=== PATIENT | male | born 1960 | race Caucasian/White ===

== ENCOUNTER 2025-02-03 10:12 | Inpatient (IN) | payer MEDICAID ==
[~2025-02-03] VITALS: Ht 175.3 cm; Wt 75.7 kg
[2025-02-03] VITALS (12 sets, daily range): BP systolic 123–152; BP diastolic 76–96; PULSE 69–91; RESP 12–18; TEMP 97.3–97.8; O2SAT 95–96
[2025-02-03 10:28] LABS: MEAN PLATELET VOLUME 7.1 FL (7.4-10.4); RED CELL DISTRIBUTION WIDTH 14.7 % (11.5-14.5)
[2025-02-03 10:53] LABS: CREATININE 1.01 MG/DL (0.60-1.10); TOTAL CARBON DIOXIDE 20.2 MMOL/L (24-32); eCRCL 75 ML/MIN; eGFR 75 ML/MIN
--- NOTE | 2025-02-03 10:56 | RADIOLOGY REPORT ---
CHEST RADIOGRAPH Indication: CP Technique: Single frontal view of the chest was obtained Comparison: None FINDINGS: Lines and Tubes: None Lungs: No focal consolidation. Pleura: No effusion. No pneumothorax. Cardiomediastinal contours: Unremarkable Bones: No acute osseous abnormality. IMPRESSION: No acute cardiopulmonary disease.
[2025-02-03 11:01] LABS: PRO BRAIN NATRIURETIC PEPTIDE 2010 PG/ML (0-125)
--- NOTE | 2025-02-03 11:13 | Physician Documentation ---
History of Present Illness ~ Chief Complaint: Hypertension Stated Complaint: HIGH BLOOD PRESSURE Time Seen by MD: 11:13 OK to notify your PCP?: Yes Source: patient, RN/MD, RN notes reviewed, old records Mode of Arrival: POV Exam Limitations: no limitations HPI 64 year old male presents to the emergency department seen in bed 03 for complaints of weakness that has been present for the past few days. While at the dentist he states that he was having high blood pressure that was 168/130. He states that he has been having recent shortness of breath, as well of dizziness. He expresses that he has been feeling like he is going to pass out. En route his daughter stated that the patient looked pale. Patient denies any diaphoresis. He states that he last ate at 0300 this morning. Of note patient states that he sees Dr. Escalante and has an appointment with him on 02/11/2025. He states that he has had negative stress tests with him in the past. Patient denies any other associated symptoms at this time. Patient denies any other alleviating or exacerbating factors. Medication Reconciliation Allergies: Coded Allergies: No Known Allergies (Unverified , 02/03/25) Miscellaneous Medications Home Med List (No Home Medications), (Reported) Past Medical History Past Medical History: Coronary Artery Disease, Hypertension Past Surgical History: gastric bypass Smoking Status: Never smoker Alcohol Use: None Drug Use: none Review of Systems All Other Systems at this time: Reviewed and Negative ROS As stated above in the HPI, otherwise all systems are reviewed and negative. Physical Exam Vital Signs: RN Vital Signs have been reviewed: Yes, Temperature: 98.4, Source: Temporal, Heart Rate: 102, Respiratory Rate: 16, BP: 135/100, Pulse Oximetry: 97, Weight: 79.250 Oxygen Flow Rate: 0 Pulse Oximetry Reflects: adequate oxygenation Physical Exam General: The patient is well developed, well nourished, nontoxic appearing and is in no acute distress. Skin: [place], warm and dry with no rashes. HEENT: Head was normocephalic and atraumatic. Eyes - pupils equal, round, reactive to light and accommodation. Extraocular movements were intact. Conjunctivae were nonicteric. Ears - bilateral tympanic membranes were normal. The mouth and oropharynx were clear with moist mucous membranes. There were no pharyngeal exudates or erythema. Neck: Supple and nontender. There was no jugular venous distention, lymphadenopathy, thyromegaly or masses. Chest: Clear to auscultation bilaterally without wheezes, rales or rhonchi. No accessory muscle use. No dullness to percussion. Heart: Rapid heart rate. S1, S2. No murmurs. Palpation of the chest wall was normal. No rubs or thrills. Abdomen: Soft, nontender and nondistended. Positive bowel sounds. No guarding or rebound. No hepatosplenomegaly or palpable masses. Extremities: No cyanosis, clubbing or edema. The patient moves all extremities. Pulses were equal and symmetric. Neurologic: Cranial nerves II-XII were intact. Sensation was intact to light touch throughout. Motor strength was 5/5 in all four extremities. Deep tendon reflexes were intact in both upper and lower extremities. Psychologic: The patient was oriented to person, place and time. The patient demonstrated appropriate judgement and insight. Progress Progress Note 1130: Dr. Escalante was informed that his patient was in the ER. 1150: The case was discussed with the hospitalist resident who was informed on the patient and kindly agreed to admission. Results/Orders Reviewed/noted all lab results: Yes Results/Orders Orders - ROSSI MG MD Chest,Single View (02/03/25 10:14) Monitor (02/03/25 10:14) Saline Lock (02/03/25 10:14) Oxygen (02/03/25 10:14) Md To Page (02/03/25 11:20) Page Hospitalist (02/03/25 11:20) Electrocardiogram (02/04/25 10:14) Completed Orders - ROSSI MG MD Chest,Single View (02/03/25 10:14) Cbc/Diff (02/03/25 10:14) PBNP (02/03/25 10:14) Hs Troponin I W Calculations (02/03/25 10:14) CMP (02/03/25 10:14) Pt Inr (02/03/25 11:14) PTT (02/03/25 11:14) Aspirin 81mg Chew Tablet (Aspirin 81mg C (02/03/25 11:15) Heparin 10,000 Unit/Ml 1ml (Heparin 10,0 (02/03/25 11:15) Heparin 25,000 Unit/250ml Bag (Heparin 2 (02/03/25 11:15) Metoprolol Tartrate Inj (Lopressor Iv) (02/03/25 11:20) Normal Saline 1000ml (Sodium Chloride 10 (02/03/25 11:20) Drug Screen, Urine (02/03/25 11:29) Message To Nursing (02/03/25 11:55) Electrocardiogram (02/04/25 10:14) Vital Signs 02/03/25 02/03/25 02/03/25 10:20 10:42 11:59 Temp 98.4 Pulse 101 102 93 Resp 18 16 B/P (MAP) 151/115 135/100 (112) Pulse Ox 99 97 O2 Flow Rate 0 Laboratory Tests Test 02/03/25 10:20 White Blood Count 14.3 H Red Blood Count 4.83 Hemoglobin 14.4 Hematocrit 42.8 Mean Corpuscular Volume 88.7 Mean Corpuscular Hemoglobin 29.9 Mean Corpuscular Hemoglobin Concent 33.7 Red Cell Distribution Width 14.7 H Platelet Count 545 H Mean Platelet Volume 7.1 L Neutrophils (%) (Auto) 69.2 Lymphocytes (%) (Auto) 18.8 L Monocytes (%) (Auto) 7.9 Eosinophils (%) (Auto) 3.0 Basophils (%) (Auto) 1.1 H Neutrophils # (Auto) 9.9 H Lymphocytes # (Auto) 2.7 Monocytes # (Auto) 1.1 H Eosinophils # (Auto) 0.4 Basophils # (Auto) 0.2 CBC Comment Prothrombin Time 10.4 INR International Normalized Ratio 1.0 Activated Partial Thromboplast Time 32 Coagulation Comments Sodium Level 140 Potassium Level 3.7 Chloride Level 108 H Carbon Dioxide Level 20.2 L Anion Gap 12 Blood Urea Nitrogen 7 Creatinine 1.01 Estimated GFR/1.73 m2 75 BUN/Creatinine Ratio 6.9 L Glucose Level 114 H Hemoglobin A1c 5.4 Calcium Level 9.0 Total Bilirubin 0.2 Aspartate Amino Transf (AST/SGOT) 32 Alanine Aminotransferase (ALT/SGPT) 93 H Alkaline Phosphatase 74 Troponin I High Sensitivity 3484 *H Pro-B-Type Natriuretic Peptide 2010 H Total Protein 8.4 H Albumin 3.6 Globulin 4.8 H Albumin/Globulin Ratio 0.8 L Chemistry Comments Re-Evaluation Re-Evaluation : Progress Patient was seen and examined. Patient was given reassurance. Patient was seen for hypertension but was also having some vague cardiac symptoms as well. Patient was then worked up for myocardial infarction in was later found to have a positive troponin admitted for non ST-elevation myocardial infarction. Patient's CBC shows a slight leukocytosis of 14 but no anemia with a hemoglobin of 14 hematocrit of 42 without left shift. Platelets slightly elevated at 545. Coagulation within normal limits urinalysis within normal limits tox screen negative. Chemistry showed slight metabolic acidosis with CO2 of 20 otherwise chemistries within normal limits. Glucose slightly elevated at 114. Liver function tests were within normal limits proBNP elevated at 2000. Unfortunately troponin was elevated at 3484. At that point in time patient was given aspirin and started on a heparin bolus. Patient also received a beta gemma and additional fluids in preparation for cardiac catheterization. Immediate consultation was made with cardiology for emergent catheterization. Patient was still having chest pain but much improved. Initial blood pressure before beta gemma was 151/115. Blood pressure later improved and was 120/99 with a heart rate of 89. Of system continuous cake icer and packer interpretation shows sinus tachycardia heart rate 100, abnormal, my interpretation. Pulse oximetry monitor interpretation shows normal oxygenation at 99% room air, normal, my interpretation. EKG/XRAY/CT/US/VASC/MRI EKG : Additional Comment 1019: EDMD Mg interpreted EKG to reveal sinus rhythm at a rate of 96bom. Patient had poor R wave progression with Q waves in V1-V3. Patient has T wave inversions in V and AVF.. Qtc of 458. Chest X-Ray : Additional Comments CHEST RADIOGRAPH Indication: CP Technique: Single frontal view of the chest was obtained Comparison: None FINDINGS: Lines and Tubes: None Lungs: No focal consolidation. Pleura: No effusion. No pneumothorax. Cardiomediastinal contours: Unremarkable Bones: No acute osseous abnormality. IMPRESSION: No acute cardiopulmonary disease. Electronically Signed by:ANABEL BLOCK MD Date & Time: 02/03/25 5254 Heart Score: Heart Score Response (Comments) Value History Moderate Suspicious [address]-Deviation 2 Age 45-64 1 Risk Factors 1 or 2 risk factors 1 Troponin >3 x's Normal limit 2 Total 7 Medical Decision Making Additional info obtained from: old records Differential Dx:Considerations: Include CHF, Include HTN, essential, Include HTN, accelerated, Include HTN, malignant, Include HTN, encephalopathy, Include medical noncompliance, Include medication withdrawal, Include pulmonary edema, Include other Departure Time of Disposition: 12:08 Disposition: ADMITTED INPATIENT Admitted to Inpatient Unit: yes, to hospitalist, 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 I provided critical care services, which included medication orders, frequent reevaluations of the patient's condition and response to treatment, ordering and reviewing test results, and discussing the case with various consultants. Ex cludes time spent performing separately billable procedures. The critical care time associated with the care of the patient was 30 minutes. Signature Scribe Signature: Scribed for Rossi Mg MD by Jaswant Castellanos . 02/03/25 11:32 Attestation: The note accurately reflects work and decisions made by me.Rossi Mg MD 02/03/25 11:13 ROSSI MG MD Feb 03, 2025 11:13 JASWANT LUNDY Feb 03, 2025 11:33
[2025-02-03 11:40] LABS: APTT 32 SECONDS (22-32); INR 1.0 INR
[2025-02-03] MEDS: metoprolol tartrate 1mg/ml inj IV SCH (11:50)
[2025-02-03] MEDS ORDERED: potassium Cl 20 mEq SR tablet PO PRN (11:55)
[2025-02-03] MEDS: MESSAGE TO NURSING IV ONE ×3 (11:55→20:50)
[2025-02-03] MEDS ORDERED: ondansetron/PF 4mg/2ml inj IV PRN ×2 (11:55→16:10)
[2025-02-03] MEDS: PERFLUTREN PROTEIN-A MICROSPHR (Optison) 0.22 MG/ML 3ML VIAL IV ONE (11:55)
[2025-02-03] MEDS ORDERED: magnesium sulf-water 2g/50mL 50 ML IV PRN (11:55)
[2025-02-03] MEDS ORDERED: mag hydrox/Alum hydrox/simeth 30ml oral suspension PO PRN (11:55)
[2025-02-03] MEDS ORDERED: potassium Cl 40MEQ/1/2NS 520ml 520 ML IV PRN (11:55)
[2025-02-03] MEDS ORDERED: magnesium sulf-water 4G/100mL 100 ML IV PRN (11:55)
[2025-02-03] MEDS ORDERED: magnesium Cl slow-release 64mg tablet PO PRN (11:55)
[2025-02-03] MEDS ORDERED: magnesium hydroxide 30ml (MOM) UD suspension PO PRN (11:55)
[2025-02-03] MEDS: heparin 10,000 units/1 ML INJ IV ONE (12:04)
[2025-02-03] MEDS: normal saline 1000ML IV soln IVB ONE (12:07)
[2025-02-03] MEDS: heparin 25,000 UNIT/250ml bag 250 ML IV PRN ×2 (12:07→21:47)
[2025-02-03] MEDS ORDERED: heparin 10,000 units/1 ML INJ IV PRN ×2 (12:15→17:50)
[2025-02-03] MEDS ORDERED: nitroGLYCERIN-Tridil 50MG/D5W 250 ML IV PRN (12:40)
--- NOTE | 2025-02-03 13:08 | HISTORY AND PHYSICAL-Residence ---
History & Physical Providers to CC Resident Creating Document: JOVANA BRIGGS, INESSA ~ History of Present Illness Reason for Admit\Complaint: Dizziness,weakness and shortness of breath History of Present Illness The patient is a 64-year-old male smoker, presented to the ED with the symptoms of dizziness, weakness and shortness of breaths for the last 3 days. For the last 3 days patient has been having shortness of breath even after walking small distance and he gets better once he gets some rest. Patient had a dental appointment for a procedure 2 days back, which was eventually canceled due to his high blood pressure. Blood pressure at that point was recorded as 210 over 110. Patient denies any chest pain,dyspepsia,sweating,nausea or vomiting. Patient admits to taking ibuprofen thrice a day for many years. Patient has no complaints of bleeding or any fecal occult blood. ED course: On my examination, his vital signs were significant for hypertension (155/70 mmHg), with a rapid heart rate of 93. He was alert and oriented upon examination. Patient has elevated troponin-3484 and elevated NT proBNP. Follows up with and patient says the last couple of stress tests have been negative. Does not have a primary care provider,is currently looking for one. Resides with his family in his house. Ambulates independently Allergies: Coded Allergies: No Known Allergies (Unverified , 02/03/25) Home Medications IBUPROFEN Past Medical History Past Medical History None Past Surgical History Surgical History Comment Stomach ulcer and an intusussception which was repaired in the 1979. Family History Family History: FHx: bladder cancer FHx: heart disease FHx: stroke Past Social History Social History Comment Patient smokes about less than 1 pack of cigarettes a day. He has been smoking for the last 30 years. History of drinking alcohol 30 years back. Smoking: Cigarettes, Less than 1 pack/day Alcohol Use: None Drug Use: None Lives with: Family Lives In: Home ROS All Other Systems: Reviewed and Negative (All systems negative except pertinent positive) Constitutional: Reports: weakness Eyes: Reports: no symptoms reported ENT: Reports: no symptoms reported Respiratory: Reports: no symptoms reported Cardiovascular: Reports: lightheadedness Gastrointestinal: Reports: no symptoms reported Male Genitalia: Reports: no symptoms reported Musculoskeletal: Reports: no symptoms reported Integumentary: Reports: no symptoms reported Allergic/Immunologic: Reports: no symptoms reported Hematologic/Lymphatic: Reports: no symptoms reported Psychiatric: Reports: no symptoms reported Exam Vitals: Vital Signs Date Time Temp Pulse Resp B/P (MAP) Pulse Ox O2 Delivery O2 Flow Rate FiO2 02/03/25 12:50 17 02/03/25 12:42 93 02/03/25 10:42 97 02/03/25 10:20 98.4 0 General: Awake , alert, and oriented x4, in apparent distress HEENT: Atraumatic, normocephalic, EOMI, anicteric sclera ; pink conjunctiva,few teeth missing Neck: Trachea midline. Supple, full range of motion, no JVD Cardiac: Regular rhythm, rapid rate with no murmurs all over the precordium. Respiratory: Equal breath sounds bilaterally, no tachypnea, Gastrointestinal: Abdomen symmetric, non-distended, soft, non-tender, normal bowel sounds x4 quadrant, normoactive, no hepatosplenomegaly Musculoskeletal: 2+ bilateral pitting edema, no cyanosis, peripheral pulses were difficult to be felt due to edema Neurological: Speech is clear, alert, and oriented x 4. No motor or sensory deficit, patient has denied examination of her flexes. Cranial nerves II-XII intact. Skin: Warm and dry Diagnostic Data Last Recorded Lab Results: 02/03/25 1020 02/03/25 1020 Diagnostic Data: Laboratory Tests Test 02/03/25 10:20 Prothrombin Time 10.4 SECONDS (9.0-12.0) INR International Normalized Ratio 1.0 INR Activated Partial Thromboplast Time 32 SECONDS (22-32) Coagulation Comments Counseling Services Smoking & Tobacco Cessation: > 10 Minutes (Patient is informed of the serious effects of smoking including but not limited to lung cancer, delayed healing, increased staph infections, bladder cancer, COPD, increased risk of heart strokes, patient understood the risk.) Advance Care Planning Advanced Care plannin - 30 Minutes (Code status is discussed with the patient and he agreed for full code with his daughter as alternate POA) Additional Plan NSTEMI Patient was started heparin drip, patient initially had ST-elevation of 1 mm which was subsequently resolved. His troponin levels were elevated,3484 and proBNP was elevated. 122 points on the CLAYTON score lab technologist reports showed: Left ventriculogram severe mid inferior hypokinesis mid-moderate anterior hypokinesis ejection fraction 40%. Calcific serial proximal 60 mid 80-85% left anterior descending Diagonal ostial 90% proximal 80%. Left circumflex with large posterolateral to apex with 75% at the left circumflex posterolateral 90 degree angle. Patient received cardiovascular surgical consultation plan for multivessel coronary bypass grafting. Patient is on amlodipine 2.5mg, metoprolol 25mg,lisinopril 40mg, aspirin 81mg and lipitor 40mg as per recommendations. on heparin drip HYPERTENSIVE EMERGENCY Patient has initially had high blood pressures in the 210/110mmhg, which was treated with metoprolol and hydralazine. His blood pressure is better now, is currently on amlodipine and metoprolol. 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 Vanna Kang tomorrow Tobacco use Long-standing history of cigarette smoking used to smoke 1pack per day for 30 years. He currently smokes 10 cigarettes/day for the last year. Plan for Nicotine replacement therapy (patch or gum) and counselled for smoking cessation. I spent 8 minutes discussing smoking cessation with the patient including the risk of continuing smoke: Lung cancer, stroke, heart attack, poor wound healing,. The patient has accepted a 14 mg nicotine patch. I spent a total of 17 minutes on reviewing various resuscitative measures/ ACP with the patient at the time of admission. The patient has decided on a full code status Code Status: Full code DVT Prophylaxis: Eliquis Lines/Tubes: PIV Nutrition: Heart healthy diet Prognosis: Guarded Disposition:Patient has patient has been posted for subclavian steal stent tomorrow and future plan for multiple vessel coronary bypass surgery. Jovana Briggs MD Internal Medicine Resident PGY-1 Date of Service: Feb 03, 2025 Billing Provider: RYANNE MATHUR DO Common Visit Codes: 28869-CBZYRJU INP/OBS CARE (HIGH) Secondary Visit Codes: 16062-GBZYI CHNG SMOKING 3-10M, [id number] CARE PLAN 30 MINUTES JOVANA BRIGGS, RES Feb 03, 2025 13:08 ALYSSA MULLEN, RES Feb 03, 2025 18:12 RYANNE MATHUR DO Feb 03, 2025 19:32
[2025-02-03] MEDS ORDERED: LIDOcaine 1% 30ml preserv. free vial ONE (13:44)
[2025-02-03] MEDS ORDERED: fentaNYL/PF 50MCG/1 ML 2ML syringe ONE ×2 (13:44→15:29)
[2025-02-03] MEDS ORDERED: heparin 1,000unit/ml 10ml vial 0 ML ONE (13:44)
[2025-02-03] MEDS ORDERED: midazolam 1 mg/ML 2ml injection ONE ×2 (13:44→15:29)
[2025-02-03] MEDS ORDERED: iohexol 350 MG/ML 50ML vial IV ONE (13:44)
[2025-02-03 13:59] LABS: URINE AMPHETAMINE SCREEN NEGATIVE (Neg); URINE BARBITUATE SCREEN NEGATIVE (Neg); URINE BENZODIAZEPINES SCREEN NEGATIVE (Neg); URINE CANNABINOID SCREEN NEGATIVE (Neg); URINE COCAINE SCREEN NEGATIVE (Neg); URINE METHADONE SCREEN NEGATIVE (Neg); URINE OPIATE SCREEN NEGATIVE (Neg); URINE PHENCYCLIDINE SCREEN NEGATIVE (Neg)
[2025-02-03 14:01] LABS: LEUKOCYTE ESTERASE ,URINE NEGATIVE (Neg); NITRITES, URINE NEGATIVE (Neg); OCCULT BLOOD,URINE SMALL (Neg)
--- NOTE | 2025-02-03 14:01 | CONSULTATION REPORT ---
Cardiac Consultation Report Providers to CC ~ Subjective Subjective Cardiology consultation: 64-year-old male came to the emergency room for malaise fatigue vague discomfort chest had was found to have [address] segment elevation two three and AVF and blood pressure of 230/130. I personally saw him two years ago and he has nonadherent medically does not take any medication and had homeopathic beliefs. He has received metoprolol 2.5 was started on intravenous heparin blood pressure is still 210/110 heart rate 100. Denies angina this time. Repeat 12 lead EKGs shows improvement of the [address]-elevation two three and AVF with nonspecific ST-T changes now. His daughter is here with him. He is status post remote gastric bypass type unknown 1998 by his history. He has repeat gastroesophageal dilatation. Two years ago he was going to have multiple teeth pulled but it was never performed. He enjoys cigarettes denies alcohol use denies recreational drug use. Troponin is greater than eight. Objective Vitals Vital Signs Date Time Temp Pulse Resp B/P (MAP) Pulse Ox O2 Delivery O2 Flow Rate FiO2 02/03/25 13:07 89 13 128/99 (109) 98 02/03/25 10:20 98.4 0 Lab Results: 02/03/25 1020 02/03/25 1020 Objective Carotid no bruit chest clear to auscultation percussion heart no murmur no S3 gallop no rub abdomen active bowel sounds no bruits pulses plus two upper and lower extremities faint femoral bruits. Ocular motion intact no nystagmus no tremor. Multiple teeth missing. Poor dentition. Coagulation Studies Laboratory Tests Test 02/03/25 10:20 Prothrombin Time 10.4 SECONDS (9.0-12.0) INR International Normalized Ratio 1.0 INR Activated Partial Thromboplast Time 32 SECONDS (22-32) Coagulation Comments Problem\Assessment\Plan Additional Plan Impression: Uncontrolled hypertension was minimal ST elevation of inferior leads now resolved. Elevated troponin. Consistent with non ST elevated MN. Recommendation: 1. Improved blood pressure control add intravenous nitroglycerin a 2nd dose of metoprolol intravenously. 2. Risks benefits alternatives diagnostic coronary angiography potential intervention discussed with patient. He would like to proceed. He promises to take his medications as prescribed. Otherwise your stent will thrombose and you will have at MN that you may not survive. RADHA MELENDEZ MD Feb 03, 2025 14:01
[2025-02-03 14:04] LABS: UA COLLECTION TYPE URINAL
[2025-02-03 14:08] LABS: AMORPHOUS URATES 1+
[2025-02-03 14:10] LABS: SQUAMOUS EPITHELIAL CELL,UR NONE SEEN /LPF (FEW)
[2025-02-03] MEDS ORDERED: nitroGLYCERIN-Tridil 50MG/D5W 250 ML IV ONE (14:45)
[2025-02-03] MEDS ORDERED: metoprolol tartrate 1mg/ml inj IV ONE (14:55)
[2025-02-03] MEDS ORDERED: enalaprilat 1.25mg/ml 2ml vial IV ONE ×3 (15:03→15:26)
[2025-02-03] MEDS ORDERED: nitroGLYCERIN-Tridil 50MG/D5W 250 ML IV SCH ×2 (15:35→15:44)
--- NOTE | 2025-02-03 15:47 | CARDIAC CATH REPORT ---
Cardiology Post Cath Findings Findings Findings: Cardiology post catheterization note: Uncomplicated left heart catheterization left ventriculography coronary arteriography subclavian angiography. Right iliofemoral arteriogram Angio-Seal application. Indication: Uncontrolled hypertension non ST elevated myocardial infarction. Patient on intravenous heparin trial to be started had received a bit beta- blockers First EKGs showed [address] segment elevation two three AVF that subsequently resolved. Troponin eight. 1. Left ventriculogram severe mid inferior hypokinesis mid moderate anterior hypokinesis ejection fraction 40%. No MR. 2. Calcific serial proximal 60 mid 80 85% left anterior descending 3. Diagonal ostial 90% proximal 80%. 4. Left circumflex with large posterolateral to apex with 75% at the left circumflex posterolateral 90 degree angle. 5. PDA 40% distal right coronary with 50%. 6. Left subclavian with 90 % stenosis 60 mm gradient difference between aortic pressure and left cuff pressure Comment: Patient received cardiovascular surgical consultation plan for multivessel coronary bypass grafting. 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 Start and continue beta-gemma amlodipine calcium channel gemma lisinopril SHEREE inhibitor aspirin 81 mg daily Lipitor 40 mg daily. Comment: Patient will receive stent to the left subclavian by Dr. Joe Kang tomorrow RADHA MELENDEZ MD Feb 03, 2025 15:47
[2025-02-03] MEDS ORDERED: HYDROcodone/acetaminophen 10/325mg tab PO PRN (16:10)
[2025-02-03] MEDS ORDERED: OXAZEpam 15mg capsule PO PRN (16:10)
[2025-02-03] MEDS ORDERED: HYDROcodone/acetaminophen 5mg/325mg tablet PO PRN (16:10)
[2025-02-03] MEDS: normal saline 1000ml 1,000 ML IV SCH (16:15)
[2025-02-03] MEDS: nitroGLYCERIN-Tridil 50MG/D5W 250 ML IV SCH (16:15)
[2025-02-03] MEDS ORDERED: heparin 10,000 units/1 ML INJ IV ONE ×2 (17:50→20:15)
[2025-02-03] MEDS ORDERED: heparin 25,000 UNIT/250ml bag 250 ML IV PRN (17:50)
--- NOTE | 2025-02-03 18:56 | CONSULTATION REPORT ---
Consult Providers to CC CC: RADHA MELENDEZ MD; [facility] Consult Consultation Chief complaint: I was asked to assess the feasibility of surgical coronary revascularization in this patient with congestive heart failure symptoms and a non ST segment elevation infarction associated with uncontrolled hypertension. 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 One year ago he developed mild exertional fatigue without any angina whatsoever and presented to his primary care provider, who referred him to Dr. Melendez, who performed stress testing that returned perfectly normal. The patient has continued to experience the same symptoms with some progression in the past few months. When he presented for dental extraction on February 01, he was found to be markedly hypertensive. The procedure was canceled, and he was told to report to his primary care provider. Due to some scheduling delay and overall not feeling well but without any chest pain, pressure, nausea, diaphoresis, pronounced dyspnea, or overt palpitations beyond some extrasystoles, he decided to present to the emergency department. He denies any leg swelling or any orthopnea. His BNP was in the 2000 range and his troponins were elevated to the 3400 range along with some ischemic changes inferiorly that apparently have since resolved. Echocardiography showed an ejection fraction of 50% with severe inferior hypokinesis and mild mitral regurgitation with estimated pulmonary artery systo lic pressure of 37 mm Hg. He was brought to the cardiac catheterization lab yesterday from the emergency department by Dr. Silverio who performed coronary angiography and left ventriculography. A 6 Emirati catheter was utilized. The left ventricular end-diastolic pressure was 22 mm Hg and the aortic pressure was 200 mm Hg. Left ventriculography showed severe inferior hypokinesis with an overall ejection fraction of approximately 30-35 % visually. The dominant right coronary artery was patent and had only a mild stenosis in the distal atrioventricular groove segment; the prominent posterior descending artery and the rest of the vessel had minimal disease. The circumflex system contained a single obtuse marginal branch that had a distal stenosis in a posterolateral branch where the vessel diameter approximates 1 mm, with little runoff beyond. The left anterior descending system does not wrap extensively beyond the apex, however, had a 60 % stenosis at the junction of its proximal and middle thirds and a separate 80% stenosis in a diagonal branch that served a substantial territory. An incidental finding was a high-grade proximal subclavian artery stenosis that impeded angiography of the left internal mammary artery, and there was a 60 mm Hg lower blood pressure in the left arm than the right. The patient denies classic left arm claudication or dizziness associated with left arm exertion suggestive of a subclavian steal. 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 The patient has been on no antihypertensive medication, but is currently between primary care providers. He feels fine on IV nitroglycerin. A chest x-ray shows no pulmonary edema and no overt cardiomegaly. Allergies: None Past Medical History Past Medical History None Past Surgical History Surgical History Comment Stomach ulcer and an intusussception which was repaired in the 1979. Family History Family History: FHx: bladder cancer FHx: heart disease FHx: stroke Past Social History Social History Comment Patient smokes about less than 1 pack of cigarettes a day. He has been smoking for the last 30 years. History of drinking alcohol 30 years back. Smoking: Cigarettes, Less than 1 pack/day Alcohol Use: None Drug Use: None Lives with: Family Lives In: Home Review of systems: Constitutional: Negative for fevers, chills, weight loss, night sweats. Endocrine: Negative for diabetes, elevated blood sugars, or known thyroid disorder. HEENT: Notable for impaired dentition pending extensive extractions, negative for severe headache, changes in visual or auditory acuity, epistaxis, or dysphagia. Cardiopulmonary: See history of present illness. Negative for cough, hemoptysis, or sputum production. The patient wheezes very rarely and uses no inhaled bronchodilator. Gastrointestinal: Negative for significant gastroesophageal reflux, abdominal pain, nausea, blood per rectum, or hepatitis. Genitourinary: Notable for mild slowing of urinary stream, nocturia times 0-1. Negative for dysuria or hematuria. Musculoskeletal: Negative for chronic back discomfort (the patient was using ibuprofen because of tooth discomfort only), leg or arm claudication, or joint swelling/discomfort. Neurologic: Negative for transient ischemic attacks, amaurosis, or seizure. No reproducible dizziness, lightheadedness, or near syncope. Psychiatric: Negative for mental health medication use or related hospitalization. Physical examination: Vital signs reviewed. Blood pressures are be taken only in the right upper extremity. General appearance: Patient is lying flat in bed on room air without any distress, normal respirations. HEENT: Normocephalic, reactive pupils, no thyromegaly, no carotid bruits. Notable for significantly impaired dentition. Normal jugular venous distention. Lymphadenopathy: Negative for cervical or supraclavicular lymphadenopathy. Chest: Normal contour, without barrel chest configuration. Good air flow bilaterally without wheezing or prolonged expiratory phase. Heart: S1, S2, regular rhythm without extrasystoles. No murmur, rub, gallop. Abdomen: Nonobese. Healed epigastric midline scar without hernia. Nondistended, nontender, no hepatosplenomegaly, mass, or palpable aneurysm. Extremities: Right groin catheterization site without hematoma. Notable for markedly impaired right radial pulse. Symmetric, full pedal pulses. No clubbing, cyanosis, or edema. Neurologic: Grossly normal. Gait and stance not checked due to bed rest status following cardiac catheterization. Psychiatric: Normal affect. Assessment and plan: 1. Coronary artery bypass grafting can be considered, particularly with regard to revascularization of the left anterior descending and diagonal coronary arteries. While the orientation of these two arteries is somewhat divergent, consideration could be given to utilization of a sequential left internal mammary artery, given the patient's habitus. Even though the wall motion abnormality both of left ventriculography and echocardiography is in the inferior wall, there does not appeared to be any hemodynamically significant lesion in the dominant right coronary artery. Additionally, the feasibility of a useful bypass graft in the posterolateral obtuse marginal region is questiona ble because of the size and runoff of that vessel beyond the very distal stenosis. 2. After discussion with the patient with regard to advantages of an internal mammary artery graft and treatment options, the patient prefers to consider PCI as his 1st option. This is not unreasonable unless stenting of the left anterior descending and diagonal artery is associated with higher procedural risk. I related this to Dr. Melendez. 3. As Dr. Melendez has noted, initiation of guideline-directed antihypertensive/heart failure medication is the most critical aspect of this patient's treatment, and I reinforced not only compliance to a medical regimen but also the total cessation of cigarette smoking. The patient professed motivation in those directions based on this episode. 4. While I regarded stenting of the proximal left subclavian stenosis to be essential preoperatively for coronary artery bypass grafting with a left internal mammary artery graft, there may not be an independent indication for proceeding presently with subclavian stenting based on minimal if any symptoms related to the left subclavian stenosis. 5. I will continue to follow the patient daily, as he is currently on intravenous nitroglycerin, in the event that there are any changes in his status. I very much appreciate this consultation opportunity. Visit Coding Cardiology Date of Service: Feb 03, 2025 Billing Provider: DARCY HSU Jr., MD Cardiology Evaluation and Dora: CONSULT ONLY Cardiology Consultation Codes: [id number] CONSULT <60MIN DARCY HSU Jr., MD Feb 03, 2025 18:56
[2025-02-03] MEDS: K and/or MAG REPLACEMENT MC SCH (20:00)
[2025-02-03] MEDS: HEPARIN DRIP-CARDIAC**PHARMACIST-TO-DOSE IV ONE (20:00)
[2025-02-03] MEDS: docusate sod 100mg capsule PO SCH (21:42)
[2025-02-04] VITALS (9 sets, daily range): BP systolic 104–143; BP diastolic 54–83; PULSE 67–85; RESP 11–19; TEMP 97.5–99; O2SAT 93–97
[2025-02-04 02:52] LABS: MEAN PLATELET VOLUME 7.1 FL (7.4-10.4); RED CELL DISTRIBUTION WIDTH 14.2 % (11.5-14.5)
[2025-02-04 03:07] LABS: CHOL/HDL RATIO 8.8 (0.00-4.99); CREATININE 0.93 MG/DL (0.60-1.10); LDL CHOLESTEROL 146 MG/DL (50-100); TOTAL CARBON DIOXIDE 24.3 MMOL/L (24-32); eCRCL 81 ML/MIN; eGFR 82 ML/MIN
[2025-02-04] MEDS: MESSAGE TO NURSING IV ONE ×2 (03:15→10:58)
[2025-02-04] MEDS: heparin 10,000 units/1 ML INJ IV PRN (03:21)
--- NOTE | 2025-02-04 04:47 | CARDIOLOGY REPORT ---
DATE OF SERVICE: 02/03/2025 DICTATING PHYSICIAN: Rupert Escalante MD PROCEDURES: * Left heart catheterization. * Left ventriculography. * Selected left and right coronary arteriography. * Selected right subclavian angiography. * Selected left subclavian angiography. * Right iliofemoral arteriogram, Angio-Seal application. * Conscious sedation administration 60 minutes. BRIEF HISTORY AND INDICATION: Medically nonadherent 64-year-old male started to feel badly, came to the emergency room with malaise, vague chest discomfort and was found to have uncontrolled hypertension and what was felt to be a non-ST elevated [place]; however, on reviewing the EKGs, there was 1-mm ST segment elevation in inferior leads, after receiving metoprolol heparin, the ST segment resolved. He has hyperlipidemia, untreated hypertension, remote gastric bypass. Past episode of esophageal dilatation. He has poor dentition and never did have his teeth removed. Two years ago, he had a normal stress test. His sister had a stent. Father had coronary bypass grafting. His daughter convinced him to come in. He does not like to go see physicians. Presently, he is on intravenous heparin. Intravenous Tridil has not been started, being transported to the vat house laborer. Troponin is 8. Risks of procedure included but not restricted to , stroke, myocardial infarction, renal failure, neurologic or vascular complications, bleeding complications, allergic reaction, emergency intervention, and emergency coronary bypass grafting and its attendant complications. The patient said he desires to proceed. TECHNIQUE: Upon arriving in the vat house laborer, he was noted to have elevated blood pressure. To prepare him for heart catheterization and to keep him sedated during the procedure, he received a total of 8 mL of 1% lidocaine, 3 mg of Versed, 150 mcg of phentermine, Vasotec 7.5 mg IV, metoprolol 5 mg IV and was placed on intravenous nitroglycerin 30 mcg per minute. He is on heparin 1000 units per hour. Following single wall puncture technique, J-tip guidewire leaked, a 6-Vietnamese sheath was then introduced to the right femoral artery. Selective left and right coronary arteriography were performed in multiple projectional obliquities. Selective right subclavian and left subclavian angiography. Runoff into the internal mammary arteries were performed with a 6-Vietnamese femoral and left 4, right 4 Trent-shaped catheters. Left ventriculography and right anterior oblique projection were performed with a straight pigtail catheter. Catheter exchanges were under fluoroscopic guidance and J-tip guidewire lead. Termination of the right iliac femoral arteriogram was performed. Angio-Seal was applied in the vat house laborer after adequate blood pressure control. Hemostasis was obtained. There were no complications. The patient received initial cardiovascular surgical evaluation in the vat house laborer. Findings were discussed with the patient and daughter postprocedure. A 100 mL of Omnipaque 350 contrast was administered. Fluoroscopy time was 4.1 minutes, radiation exposure of 5890 cGy per cm2. FINDINGS: A 64-year-old male, 5 feet 9 inches, 175 pounds, AO 177/100, LV 177/7-22. Left ventriculogram mild anterior, mid, inferior severe hypokinesis, ejection fraction 40%, mitral valve flow, no mitral regurgitation. Right subclavian with 20% narrowing. Right internal mammary smooth. Proximal 90% left subclavian, DEREK-3 flow distally. Left internal mammary partially opacified, uninterpretable. Left main coronary is tapered. It provides a left anterior descending and left circumflex. There is an 80% eccentric proximal left anterior descending, 80% mid left anterior descending, a bifurcated first septal at the level of the proximal left anterior descending narrowing. Diagonal has serial proximal 85%, 50% narrowings. Left circumflex provides a first and second obtuse marginal and intermediate of 0.5 mm in diameter. The posterolateral is a long vessel, it has a 110-degree bend. It provides a 1-mm vessel with 60% narrowing at the left circumflex posterolateral junction. Right coronary artery is proximal 25% narrowing. It is a large vessel. There is an eccentric proximal 40% posterior descending artery narrowing and 40% distal right coronary artery narrowing in the proximal segment of the distal right coronary. It provides a first, second, and third posterolateral branch. Both the posterior descending and the posterolateral reached the apex of the myocardium. RESULTS: * Mild anterior, severe mid-inferior hypokinesis. Ejection fraction 40%. Mitral valve prolapse. No mitral regurgitation. * A 20% right subclavian narrowing. Right internal mammary smooth. * A 90% proximal left subclavian narrowing, DEREK-3 flow distally in the left subclavian. DEREK-3 flow after the proximal opacification of the left internal mammary artery. * Left main coronary tapered. * An 80% proximal left anterior descending, 80% mid left anterior descending. * Serial 85%, 50% diagonal branch narrowing. * A 60% narrowing of the left circumflex posterolateral junction. * A 25% proximal right coronary, likely calcific, 40% proximal posterior descending, 40% proximal segment of distal right coronary. Right coronary is a large vessels reach apex of myocardium. COMMENT: The patient appears to have had an aborted inferior wall [place] with anticoagulation, blood pressure control. He had a hypertensive emergency on presentation. Blood pressure was 230/130. He is found to have severe left anterior descending, diagonal, left circumflex narrowings, not good quality for intervention. Surprisingly, the posterior descending and distal right coronary were only 40% narrowed. There is a severe ostial proximal left subclavian stenosis. RECOMMENDATIONS: The patient receives cardiovascular surgical consultation. Plan is for left subclavian stent deployment with surgical revascularization once more improved with respect to his hemodynamics. Rupert Escalante MD TID: [id number] RECEIPT: [id number] TR/CRISS/PERCY cc: Mejia Mazariegos MD, Joselyn Kang MD
--- NOTE | 2025-02-04 07:07 | ELECTROCARDIOGRAPH REPORT ---
[facility] Test Date: 2025-02-04 Test Time: 06:55:27 Pat Name: ROSARIO LIZ Department: [facility] 3S Room: [facility] [address] Gender: M Gate Operator: : 1960 Requested By: ROSSI GORDON Order Number: [id number] Reading MD: Dr. CARLOS Ellington Measurements Intervals [place] Rate: 74 P: 70 [place]: 167 QRS: 56 QRSD: 119 T: 2 QT: 428 QTc: 475 Interpretive Statements Sinus rhythm Probable left atrial enlargement Incomplete right bundle branch block Inferior infarct, old Electronically Signed On 02-04-2025 9:31:[address] CARLOS Ellington Please click the below link to view image of tracing.
[2025-02-04] MEDS: metoprolol succinate 25mg (24-HOUR) SR. Tablet PO SCH (09:07)
[2025-02-04] MEDS: potassium Cl 20 mEq SR tablet PO PRN (09:07)
--- NOTE | 2025-02-04 13:10 | PROGRESS NOTE ---
Progress Note Cardiology Providers to CC ~ Subjective Subjective Cardiology progress note: Non ST elevated [place] uncontrolled hypertension severe left anterior descending diagonal narrowings. Medically nonadherent patient. Patient changes mind and does not want to have heart catheterization he is adamant. He wants medical therapy. He was going to have a left subclavian stent however the procedure physician declined to do it as an inpatient as he is not going to be going for surgery. He would like to see him as an outpatient. I discussed medical therapy with him aspirin which he can not take due to gastric bypass in the past or at least with some risk. Plavix therapy statin therapy beta-gemma therapy and other as needed for blood pressure control. Heparin has been discontinued Plavix order 300 mg loading dose and 75 mg daily. Should be continued on statins. Objective Result Diagram: 02/04/25 0240 02/04/25 0240 Objective Carotid no bruit. Lungs are clear. Heart no murmur heard. No rub peripheral pulses intact. No edema. Coagulation Studies Laboratory Tests Test 02/03/25 10:20 02/04/25 09:16 Prothrombin Time 10.4 SECONDS (9.0-12.0) INR International Normalized Ratio 1.0 INR Activated Partial Thromboplast Time 32 SECONDS (22-32) APTT (Heparin Protocol) 54 SECONDS (45-60) Coagulation Comments Problem\Assessment\Plan Additional Plan Assessment: Patient declines to have surgery wants medical therapy. Plan medical therapy. Hospitalist to manage the patient. RADHA MELENDEZ MD Feb 04, 2025 13:10
[2025-02-04] MEDS: clopidogrel 300mg tablet PO ONE (13:54)
[2025-02-04] MEDS ORDERED: NO HOME MEDS (14:40)
--- NOTE | 2025-02-04 19:23 | PROGRESS NOTE- Residence ---
Progress Note - Resident Providers to CC Resident Creating Document: HUI BRIGGS RES ~ Antibiotic Timeout Antibiotic Ordered?: No Subjective The patient is a 64-year-old male smoker, presented to the ED with the symptoms of dizziness, weakness and shortness of breaths for the last 3 days. For the last 3 days patient has been having shortness of breath even after walking small distance and he gets better once he gets some rest. Patient was seen and examined at the bedside today. He was going to have a left subclavian stent however the procedure physician declined to do it as an inpatient as he is not going to be going for surgery. Patient changed his mind and does not want to have heart catheterization He wants medical therapy. Objective Vital Signs Date Time Temp Pulse Resp B/P (MAP) Pulse Ox O2 Delivery O2 Flow Rate FiO2 02/04/25 17:16 128/71 02/04/25 15:00 97.7 81 15 93 Room Air 02/03/25 10:20 0 Result Diagram: 02/04/25 0240 02/04/25 0240 General: Awake , alert, and oriented x4, in apparent distress HEENT: Atraumatic, normocephalic, EOMI, anicteric sclera ; pink conjunctiva,few teeth missing Neck: Trachea midline. Supple, full range of motion, no JVD Cardiac: Regular rhythm and rate with no murmurs all over the precordium. Respiratory: Equal breath sounds bilaterally, no tachypnea, Gastrointestinal: Abdomen symmetric, non-distended, soft, non-tender, normal bowel sounds x4 quadrant, normoactive, no hepatosplenomegaly Musculoskeletal: Peripheral pulses felt Neurological: Speech is clear, alert, and oriented x 4. No motor or sensory deficit Cranial nerves II-XII intact. Skin: Warm and dry Coagulation Studies Laboratory Tests Test 02/03/25 10:20 02/04/25 16:06 Prothrombin Time 10.4 SECONDS (9.0-12.0) INR International Normalized Ratio 1.0 INR Activated Partial Thromboplast Time 32 SECONDS (22-32) APTT (Heparin Protocol) 31 SECONDS (45-60) L Coagulation Comments Counseling Services Smoking & Tobacco Cessation: > 10 Minutes ((Patient is informed of the serious effects of smoking including but not limited to lung cancer, delayed healing, increased staph infections, bladder cancer, COPD, increased risk of heart strokes, patient understood the risk) Advance Care Planning Advanced Care plannin - 30 Minutes ( (Code status is discussed with the patient and he agreed for full code with his daughter as alternate POA)) Assessment Assessment The patient is a 64-year-old male smoker, presented to the ED with the symptoms of dizziness, weakness and shortness of breaths. Plan Plan NSTEMI Patient received cardiovascular surgical consultation plan for multivessel coronary bypass grafting. Patient was initially okay with the procedure but now is not willing and wants only medical therapy. Heparin has been discontinued Patient can not take aspirin due to his gastric bypass in the past so he has been advised to discontinue aspirin as per Dr. Escalante Patient is on amlodipine 2.5mg, metoprolol 25mg,lisinopril 40mg, and lipitor 40mg as well as loading dose of 300 mg of Plavix and 75 mg of Plavix daily as per recommendations. HYPERTENSIVE EMERGENCY Patient has initially had high blood pressures in the 210/110mmhg, which was treated with metoprolol and hydralazine. His blood pressure is better now, is currently on amlodipine and metoprolol. SUBCLAVIAN STEEL STENOSIS Patient's cath report showed left subclavian steal stenosis 90% Patient was supposed to get the stent today but he adamantly declined the stent. Patient wants only medical therapy. Hypercholestrolemia Patient has deranged lipid profile. He is on Lipitor 40 mg. Tobacco use Long-standing history of cigarette smoking used to smoke 1pack per day for 30 years. He currently smokes 10 cigarettes/day for the last year. Counselled for smoking cessation. Code Status: Full code Lines/Tubes: PIV Nutrition: Heart healthy diet Prognosis: Guarded Disposition:Patient patient was recommended to undergo cardiac catheterization and subclavian stent but he declined and wants only medical therapy. Plan is to discharge patient with medical therapy and ask him to follow up outpatient with Dr. Boris Briggs MD Internal Medicine Resident PGY-1 Date of Service: Feb 04, 2025 Billing Provider: RYANNE MATHUR DO Common Visit Codes: [id number] INP/OBS CARE(HIGH) HUI BRIGGS, RES Feb 04, 2025 19:23 RYANNE AMTHUR DO Feb 04, 2025 20:13
[2025-02-05] VITALS (15 sets, daily range): BP systolic 111–158; BP diastolic 72–100; PULSE 72–90; RESP 14–22; TEMP 97.1–97.9; O2SAT 93–97
[2025-02-05 06:12] LABS: MEAN PLATELET VOLUME 7.2 FL (7.4-10.4); RED CELL DISTRIBUTION WIDTH 14.2 % (11.5-14.5)
[2025-02-05 06:26] LABS: CREATININE 1.00 MG/DL (0.60-1.10); TOTAL CARBON DIOXIDE 22.3 MMOL/L (24-32); eCRCL 76 ML/MIN; eGFR 75 ML/MIN
[2025-02-05] MEDS: nitroGLYCERIN-Tridil 50MG/D5W 250 ML IV SCH (10:02)
--- NOTE | 2025-02-05 11:19 | PROGRESS NOTE- Residence ---
Progress Note - Resident Providers to CC Resident Creating Document: ALYSSA MULLEN RES CC: PEDRITO SILVESTRE MD ~ Central Line/PICC still needed: N\A Antibiotic Timeout Antibiotic Ordered?: No Subjective Patient is seen this morning. No acute overnight no events noted. No chest pain. He is on nitroglycerin drip. Spoke to the patient and he is okay to get cardiac stents. Informed to Dr. Escalante regarding this and he said he will, talk to the patient. He also said patient might possibly needs left subclavian stent before angiogram. Dr. Escalante is okay with weaning of nitroglycerin drip as long his blood pressures are under control. Objective Vital Signs Date Time Temp Pulse Resp B/P (MAP) Pulse Ox O2 Delivery O2 Flow Rate FiO2 02/05/25 10:02 140/82 02/05/25 08:03 72 02/05/25 08:00 17 96 Room Air 02/05/25 06:00 97.4 02/03/25 10:20 0 Result Diagram: 02/05/25 0535 02/05/25 0534 General: Elderly male, AAO x4, not in apparent distress Head: Normocephalic with an atraumatic Eyes: Pupils- 3mm, reacting to light, conjunctiva- anicteric Nose and throat: No polyps, septum- normal, no mucosal ulcers Neck: Supple, no lymphadenopathy, no carotid bruit Respiratory: No use of accessory muscles of respiration, Bilateral normal breath sounds heard. No wheeze, rhochi or creps Cardiac: S1-S2 heard, rythm regular, no gallop/murmur Abdomen: non distended, no tenderness, no organomegaly, bowel sounds- heard Extremities: no clubbing, no pedal edema, no deformities, peripheral pulses- 2+ Skin: warm and dry, no rash, no purpura Neuro: No focal deficit, gross cranial nerve exam- normal Coagulation Studies Laboratory Tests Test 02/03/25 10:20 02/04/25 16:06 Prothrombin Time 10.4 SECONDS (9.0-12.0) INR International Normalized Ratio 1.0 INR Activated Partial Thromboplast Time 32 SECONDS (22-32) APTT (Heparin Protocol) 31 SECONDS (45-60) L Coagulation Comments Assessment Assessment 64-year-old male, chronic smoker, presented to the ED with chief complaints of chest pain Plan Plan NSTEMI -undergone cardiac catheterization on 02/03 which showed 80-85% proximal and mid LAD, 90% left subclavian stenosis, 60% diagonal, 25% RCA Initially Dr. Escalante recommended Cardiothoracic consultation and stent for left subclavian stenosis. -[facility] surgeon Dr. Mazariegos consulted, however patient does not want to undergo CABG as patient is not undergoing CABG left subclavian stenting is not done. Patient is okay with getting angiogram and stent placed. Informed to Dr. Escalante and he will, talk to the patient today. -2D echo showed ejection fraction of 45-50% -continue aspirin, Plavix, atorvastatin -continue metoprolol and lisinopril HYPERTENSIVE EMERGENCY- resolved Patient has initially had high blood pressures in the 210/110mmhg, which was treated with metoprolol and hydralazine. His blood pressure is better now, is currently on amlodipine, lisinopril and metoprolol. Currently nitroglycerin running at 30 mics per minute, wean off to 15 and then DC Dose Of amlodipine increased to 10 mg once daily SUBCLAVIAN STEEL STENOSIS Patient's cath report showed left subclavian steal stenosis 90% He will likely need stent Hypercholestrolemia Continue Lipitor 40 mg once daily Tobacco use Long-standing history of cigarette smoking used to smoke 1pack per day for 30 years. He currently smokes 10 cigarettes/day for the last year. Counselled for smoking cessation. Code Status: Full code Lines/Tubes: PIV Nutrition: Heart healthy diet Prognosis: Guarded Disposition: Either cardiac catheterization during this hospitalization or discharge on medical therapy and follow up with Dr. Escalante for angiogram Alyssa Mullen MD IM resident PGY3 Date of Service: Feb 05, 2025 Billing Provider: PEDRITO SILVESTRE MD Common Visit Codes: [id number] INP/OBS CARE(HIGH) ALYSSA MULLEN, RES Feb 05, 2025 11:19 PEDRITO SILVESTRE MD Mar 01, 2025 15:22
--- NOTE | 2025-02-05 14:59 | PROGRESS NOTE ---
Progress Note Cardiology Providers to CC ~ Subjective Subjective Cardiology progress note: Met with patient and daughter. 60 minute explanation of his findings including his ostial left subclavian stenosis he has severe left anterior descending diagonal narrowing moderate left circumflex narrowing with suboptimal for intervention. Illustrations were made of his coronary anatomy end of his left subclavian stenosis. He has been up and ambulated however he is still on nitroglycerin. Blood pressure is not yet controlled. Medications were reviewed with nursing record is at variance with physician record on the medication portion of the computer system. Objective Result Diagram: 02/05/25 0535 02/05/25 0534 Objective Awake alert cooperative. Carotid no bruit chest clear to auscultation percussion heart no murmur no S3 gallop no rub peripheral pulses plus two upper and lower. Right groin healed. Coagulation Studies Laboratory Tests Test 02/03/25 10:20 02/04/25 16:06 Prothrombin Time 10.4 SECONDS (9.0-12.0) INR International Normalized Ratio 1.0 INR Activated Partial Thromboplast Time 32 SECONDS (22-32) APTT (Heparin Protocol) 31 SECONDS (45-60) L Coagulation Comments Problem\Assessment\Plan Additional Plan Assessment: Patient best served by medical therapy at this time aspirin Plavix statins antihypertensives. As an outpatient he could have stent placed by Dr. Joe Kang should be referred to his office for left subclavian stent. Once he is an outpatient I will see him in follow-up. He states he will keep the appointment. Recommendation: As above in assessment. In off of nitroglycerin completely. Increase activity to hallway really ; if remains asymptomatic he could be discharged on 02/06 if his medications are all arranged. He is agreeable to this plan. RADHA MELENDEZ MD Feb 05, 2025 14:59
[2025-02-06] VITALS (8 sets, daily range): BP systolic 119–185; BP diastolic 77–113; PULSE 79–86; RESP 14–19; TEMP 97.1–98.3; O2SAT 93–97
[2025-02-06 05:38] LABS: MEAN PLATELET VOLUME 7.1 FL (7.4-10.4); RED CELL DISTRIBUTION WIDTH 14.4 % (11.5-14.5)
[2025-02-06 05:59] LABS: CREATININE 0.96 MG/DL (0.60-1.10); TOTAL CARBON DIOXIDE 24.5 MMOL/L (24-32); eCRCL 79 ML/MIN; eGFR 79 ML/MIN
[2025-02-06] MEDS ORDERED: LISI40TA20 PO (10:40)
[2025-02-06] MEDS ORDERED: NITR0.4T48 SL (10:40)
[2025-02-06] MEDS ORDERED: ATOR40TA72 PO (10:40)
[2025-02-06] MEDS ORDERED: NOR5T PO (10:40)
[2025-02-06] MEDS ORDERED: ASPI81TA53 PO (10:40)
[2025-02-06] MEDS ORDERED: CLOP75TA34 PO (10:40)
[2025-02-06] MEDS ORDERED: METO-395 PO (10:40)
[2025-02-06] MEDS ORDERED: NICO-631 TOP (10:43)
--- NOTE | 2025-02-06 13:53 | PROGRESS NOTE ---
Progress Note Cardiology Providers to CC ~ Subjective Subjective Cardiology progress note: Non ST elevated myocardial infarction hypertension. Severe left anterior descending diagonal narrowing patient declined to have surgery. 95% left subclavian stenosis. He has been ambulatory on medical therapy in the hallway and blood pressure is controlled and he is asymptomatic. Objective Result Diagram: 02/06/25 0521 02/06/25 05 Objective Carotid no bruit left subclavian no bruit 60 mm difference between left arm and ascending aortic pressure. No murmur no S3 gallop no rub peripheral pulses intact. Right groin well healed. Coagulation Studies Laboratory Tests Test 02/03/25 10:20 02/04/25 16:06 Prothrombin Time 10.4 SECONDS (9.0-12.0) INR International Normalized Ratio 1.0 INR Activated Partial Thromboplast Time 32 SECONDS (22-32) APTT (Heparin Protocol) 31 SECONDS (45-60) L Coagulation Comments Problem\Assessment\Plan Additional Plan Assessment: Severe left anterior descending diagonal narrowing poor for any intervention. Patient declined to have surgery. He is going to see Dr. Joe Kang an outpatient for left subclavian stent. Blood pressure is controlled he is on Plavix statins. Not on aspirin due to status post gastric bypass. Plan: As above. He becomes more symptomatic or has recurrence then he is willing to accept coronary bypass grafting. RADHA MELENDEZ MD Feb 06, 2025 13:53
--- NOTE | 2025-02-06 13:58 | DISCHARGE SUMMARY-Residence ---
Discharge Summary Providers to CC Resident Creating Document: ALYSSA MULLEN RES CC: PEDRITO SILVESTRE MD ~ Discharge Summary Assessment 64-year-old male, chronic smoker, presented to the ED with chief complaints of chest pain Admission Diagnosis: NSTEMI Hospital Course DATE OF ADMISSION: 02/03/2025 DATE OF DISCHARGE: 02/06/2025 Discharge Diagnosis\Comment: NSTEMI Hypertensive emergency resolved Left subclavian stenosis Hypercholesteremia Tobacco use Operations\Procedures: Cardiac catheterization done by Dr. Escalante on 02/03 Consultants: Dr. Escalante, canceling machine operator Dr. Mazariegos, [facility] surgeon Complications: None Condition on DC: Stable New Medications: Atorvastatin Calcium (Atorvastatin Calcium) 40 Mg Tablet 1 TAB PO DAILY for 30 Days, #30 TAB 0 Refills Lisinopril* (Lisinopril*) 40 Mg Tablet 1 TAB PO DAILY for 30 Days, #30 TAB Nicotine 14 MG Patch* (Habitrol 14 MG Patch*) 1 Each Patch.td24 1 PATCH TOP DAILY for smoking cessation for 28 Days, #28 PATCH Nitroglycerin (Nitroglycerin) 0.4 Mg Tab.subl 0.4 MG SL Q10MIN PRN for chest pain for 1 Day, #3 TAB Amlodipine Besylate (Amlodipine Besylate) 5 Mg Tablet 5 MG PO BID for 30 Days, #60 TAB Aspirin (Children's Aspirin) 81 Mg Tab.chew 81 MG PO DAILY for 30 Days, #30 TAB.CHEW Clopidogrel Bisulfate (Clopidogrel) 75 Mg Tablet 75 MG PO DAILY for 30 Days, #30 TAB Do not stop medication unless instructed by prescriber. Metoprolol Succinate (Metoprolol Succinate) 25 Mg Tab.sr.24h 25 MG PO DAILY for 30 Days, #30 TAB.SR Continued Medications: Home Med List (No Home Medications) Each Discharge Summary: 64-year-old male chronic smoker and presented to the ED G with chief complaints of chest pains his EKG showed changes of NSTEMI and patient was initially st arted on NSTEMI protocol including loading dose of aspirin and atorvastatin. Dr. Escalante canceling machine operator was consulted and patient was taken to medical lab specialist on 02/03 , angiogram showed 80-85% proximal and mid LAD, 90% left subclavian stenosis, 60% diagonal and 25% RCA occlusion. Patient was started on heparin drip and [facility] consultation done. Dr. Arcidi, [facility] surgeon consulted on the patient and patient at this time does not want to go to CABG, and if patient has to be taken to CABG left subclavian stenting has to be done to harvest POOLE. Dr. Escalante cardiology recommended that patient has to be managed on medical therapy ended he has to get stenting on outpatient basis and he will follow up with patient on outpatient basis. During the hospitalization patient's blood pressures were initially high and which came down after nitroglycerin drip. He was started on aspirin Plavix atorvastatin metoprolol lisinopril and amlodipine. He had high cholesterolemia and was started on Lipitor. Patient received counseling for tobacco abuse and he is planning to quit smoking. On the day of discharge patient walked for 2-3 labs and denied any exertional chest pain or dyspnea. We explained the findings and the plan to the patient and his family multiple times. He is hemodynamically stable at the time of discharge and his physical condition is as follows General: Elderly male, AAO x4, not in apparent distress Head: Normocephalic with an atraumatic Eyes: Pupils- 3mm, reacting to light, conjunctiva- anicteric Nose and throat: No polyps, septum- normal, no mucosal ulcers Neck: Supple, no lymphadenopathy, no carotid bruit Respiratory: No use of accessory muscles of respiration, Bilateral normal breath sounds heard. No wheeze, rhochi or creps Cardiac: S1-S2 heard, rythm regular, no gallop/murmur Abdomen: non distended, no tenderness, no organomegaly, bowel sounds- heard Extremities: no clubbing, no pedal edema, no deformities, peripheral pulses- 2+ Skin: warm and dry, no rash, no purpura Neuro: No focal deficit, gross cranial nerve exam- normal Labs CBC-, WBC 14.6, platelets 470 BMP-sodium 138, potassium 3.7, BUN 12, creatinine 0.96, A1c 5.4, troponin I 3484 Triglycerides 199, total cholesterol 212, LDL 146, HDL 24 2D echo done on 02/03 There is [id number] LV systolic dysfunction present. Overall estimated LVEF is 45-50%. Normal LV size with [id number] decreased function. Mild concentric hypertrophy. RV is normal size and function. Trileaflet AV appears mildly sclerotic without stenosis. Trace insufficiency. Mild mitral annular calcification without stenosis. Mild regurgitation. The tricuspid valve is normal in structure with trace regurgitation. The pulmonary valve is normal in structure with physiologic insufficiency. Normal pericardium. No effusion. Anterior epicardial fat pad is present. Chest x-ray done on 02/03 No acute cardiopulmonary disease. cardiac cath on 02/03 1. Left ventriculogram severe mid inferior hypokinesis mid moderate anterior hy pokinesis ejection fraction 40%. No MR. 2. Calcific serial proximal 60 mid 80 85% left anterior descending 3. Diagonal ostial 90% proximal 80%. 4. Left circumflex with large posterolateral to apex with 75% at the left circumflex posterolateral 90 degree angle. 5. PDA 40% distal right coronary with 50%. His discharge medications can be found above, and he is sent home with the following recommendations Please follow up with your PCP within a week of discharge Please follow up with canceling machine operator Dr. Escalante give his office a call and ask for a referral to be sent to Dr. Joselyn Kang for left subclavian stent placement Please take all medications as prescribed Avoid strenuous activities Recommended to measure blood pressures at home and the goal of med pressure should be 120/80 Recommended dash diet and Mediterranean diet Do not measure blood pressures on the left arm Strongly recommended to avoid smoking Return to the ER in case of any chest pain, shortness of breaths *Problems/Diagnosis: (1) NSTEMI (non-ST elevated myocardial infarction) Status: Acute (2) Hypertensive emergency Status: Acute Total Time Spent on D/C: > 30 Minutes Counseling Services Smoking & Tobacco Cessation: > 10 Minutes ([place] and tobacco cessation is given to patient at the time of discharge and patient understood and is willing to quit smoking) Date of Service: Feb 06, 2025 Billing Provider: PEDRITO SILVSETRE MD, HARIVARSHA, RES Feb 06, 2025 13:58 PEDRITO SILVESTRE MD Mar 01, 2025 15:31
[2025-02-06] MEDS: hydrALAZINE 20mg/ml inj. IV PRN (16:08)
--- NOTE | 2025-02-06 17:33 | PROGRESS NOTE- Residence ---
Progress Note - Resident Providers to CC Resident Creating Document: ALYSSA MULLEN RES CC: PEDRITO SILVESTRE MD ~ Central Line/PICC still needed: N\A Antibiotic Timeout Antibiotic Ordered?: No Subjective Patient is seen this morning. No acute overnight no events noted. Ambulating well w/o chest pain, sob, while he is getting discharged, he had spiks in BP and hence we didnt dc him today, but no symptoms during that time Objective Vital Signs Date Time Temp Pulse Resp B/P (MAP) Pulse Ox O2 Delivery O2 Flow Rate FiO2 02/06/25 16:59 87 02/06/25 15:00 185/113 (137) 02/06/25 02:00 97.8 19 97 Room Air 02/03/25 10:20 0 Result Diagram: 02/06/25 0521 02/06/25 0521 General: Elderly male, AAO x4, not in apparent distress Head: Normocephalic with an atraumatic Eyes: Pupils- 3mm, reacting to light, conjunctiva- anicteric Nose and throat: No polyps, septum- normal, no mucosal ulcers Neck: Supple, no lymphadenopathy, no carotid bruit Respiratory: No use of accessory muscles of respiration, Bilateral normal breath sounds heard. No wheeze, rhochi or creps Cardiac: S1-S2 heard, rythm regular, no gallop/murmur Abdomen: non distended, no tenderness, no organomegaly, bowel sounds- heard Extremities: no clubbing, no pedal edema, no deformities, peripheral pulses- 2+ Skin: warm and dry, no rash, no purpura Neuro: No focal deficit, gross cranial nerve exam- normal Coagulation Studies Laboratory Tests Test 02/03/25 10:20 02/04/25 16:06 Prothrombin Time 10.4 SECONDS (9.0-12.0) INR International Normalized Ratio 1.0 INR Activated Partial Thromboplast Time 32 SECONDS (22-32) APTT (Heparin Protocol) 31 SECONDS (45-60) L Coagulation Comments Assessment Assessment 64-year-old male, chronic smoker, presented to the ED with chief complaints of chest pain Plan Plan NSTEMI -undergone cardiac catheterization on 02/03 which showed 80-85% proximal and mid LAD, 90% left subclavian stenosis, 60% diagonal, 25% RCA Initially Dr. Escalante recommended Cardiothoracic consultation and stent for left subclavian stenosis. -[facility] surgeon Dr. Mazariegos consulted, however patient does not want to undergo CABG as patient is not undergoing CABG left subclavian stenting is not done. Patient is okay with getting angiogram and stent placed. Informed to Dr. Escalante and he will, talk to the patient today. -2D echo showed ejection fraction of 45-50% -continue aspirin, Plavix, atorvastatin -continue metoprolol and lisinopril HYPERTENSIVE EMERGENCY- resolved HTN Patient has initially had high blood pressures in the 210/110mmhg, which was treated with metoprolol and hydralazine. His blood pressure is better now, is currently on amlodipine, lisinopril and metoprolol. Continue amlodipine at 5 mg bid, lisinopril 40 mg od, and increased metoprolol to 50 mg once daily SUBCLAVIAN STEEL STENOSIS Patient's cath report showed left subclavian steal stenosis 90% He will likely need stent Hypercholestrolemia Continue Lipitor 80 mg once daily Tobacco use Long-standing history of cigarette smoking used to smoke 1pack per day for 30 years. He currently smokes 10 cigarettes/day for the last year. Counselled for smoking cessation. Code Status: Full code Lines/Tubes: PIV Nutrition: Heart healthy diet Prognosis: Guarded Disposition: dc home tomorrow, once BP is under control Alyssa Mullen MD IM resident PGY3 Date of Service: Feb 06, 2025 Billing Provider: PEDRITO SILVESTRE MD Common Visit Codes: [id number] INP/OBS CARE(HIGH) ALYSSA MULLEN, RES Feb 06, 2025 17:33 PEDRITO SILVESTRE MD Mar 01, 2025 15:30
[2025-02-07] VITALS (7 sets, daily range): BP systolic 109–140; BP diastolic 59–85; PULSE 72–88; RESP 16–18; TEMP 95.5–97.8; O2SAT 96–99
[2025-02-07 06:30] LABS: MEAN PLATELET VOLUME 7.4 FL (7.4-10.4); RED CELL DISTRIBUTION WIDTH 14.1 % (11.5-14.5)
[2025-02-07 07:11] LABS: CREATININE 1.00 MG/DL (0.60-1.10); TOTAL CARBON DIOXIDE 24.3 MMOL/L (24-32); eCRCL 76 ML/MIN; eGFR 75 ML/MIN
[2025-02-07] MEDS: metoprolol succinate 25mg (24-HOUR) SR. Tablet PO SCH (07:34)
--- NOTE | 2025-02-07 10:31 | PROGRESS NOTE ---
Progress Note Dictate Providers to CC CC: ALIDA KANG MD; MELINA KANG MD; RADHA MELENDEZ MD; [facility] ~ Progress Note: Subjective/events: Dr. Melendez informed me on February 05 above the patient's planned discharge for that day, and I called the patient's home today to see how he was faring on medical therapy, only to be informed not only that the patient had not yet been discharged, but also that he wished to proceed with invasive therapy, including coronary artery bypass grafting. During my conversation with Dr. Melendez on February 05, he informed me that he felt the patient was a suboptimal stenting candidate, and during our phone call this morning, he concurred with my recommendation that we proceed with coronary bypass grafting during the current admission, following stenting of the left subclavian artery. The patient received three doses of clopidogrel, including this morning, but it has now been discontinued. The patient denies active angina, but notes that he has blood pressure was 200 mmHg last night, prompting delay in his discharge. Antibiotic Ordered?: No Subjective Subjective See above. Objective Vitals Vital Signs Date Time Temp Pulse Resp B/P (MAP) Pulse Ox O2 Delivery O2 Flow Rate FiO2 02/07/25 11:03 97.7 88 16 140/85 (103) 99 Room Air 02/03/25 10:20 0 Vital signs: Improved blood pressure noted following amlodipine. General appearance: Patient admits to mild ongoing stress, no respiratory impairment on room air. HEENT: No sinus tenderness, but patient is complaining of right upper jaw tooth discomfort. Chest: Clear breath sounds without wheezing Heart: S1, S2, no murmur, rub, gallop Abdomen: Nondistended, nontender. Extremities: Normal gait, no joint swelling or tenderness, no calf tenderness or edema. Lab Results: 02/07/25 0511 02/07/25 0511 Coagulation Studies Laboratory Tests Test 02/03/25 10:20 02/04/25 16:06 Prothrombin Time 10.4 SECONDS (9.0-12.0) INR International Normalized Ratio 1.0 INR Activated Partial Thromboplast Time 32 SECONDS (22-32) APTT (Heparin Protocol) 31 SECONDS (45-60) L Coagulation Comments Problem\Assessment\Plan Additional Plan 1. The patient has received three doses of Plavix, but with his continued hospitalization, it is reasonable to proceed with coronary artery bypass grafting times 2-3 on Saturday knowing that there is a slight increased risk of bleeding requiring re-exploration. I discussed this with the patient. We will have 4 platelet packs available perioperatively. 2. Dr. Nidhi Kang we will perform left subclavian artery stenting tomorrow. 3. I will obtain a noncontrast chest CT scan today to assure that there is no pronounced ascending aortic atherosclerosis given the finding of the ostial left subclavian artery stenosis, as well as checking for any pulmonary infiltrates. 4. Repeat proBNP and high sensitivity troponin ordered for today. 5. The only potential source for the continued white blood cell elevation appears to be the infected tooth, and the hospitalist team is placing the patient on appropriate antibiotic coverage for that source. Visit Coding Cardiology Date of Service: Feb 07, 2025 Billing Provider: DARCY HSU Jr., MD Cardiology Evaluation and Dora: [id number](High DARCY HSU Jr., MD Feb 07, 2025 10:31
[2025-02-07 11:08] LABS: PRO BRAIN NATRIURETIC PEPTIDE 2283 PG/ML (0-125)
--- NOTE | 2025-02-07 13:03 | PROGRESS NOTE ---
Progress Note Cardiology Providers to CC ~ Subjective Subjective Cardiology progress note: Non ST elevated [place] severe coronary arterial disease patient initially refused to have coronary bypass grafting now he changes his mind. He has severe left subclavian stenosis that requires stent that hopefully will be performed on Saturday. Objective Result Diagram: 02/07/25 0511 02/07/25 0511 Objective Carotid no bruit chest clear to auscultation percussion heart no murmur heard no S3 gallop no rub no edema. Patient ambulatory in [facility] on medical therapy. Coagulation Studies Laboratory Tests Test 02/03/25 10:20 02/04/25 16:06 Prothrombin Time 10.4 SECONDS (9.0-12.0) INR International Normalized Ratio 1.0 INR Activated Partial Thromboplast Time 32 SECONDS (22-32) APTT (Heparin Protocol) 31 SECONDS (45-60) L Coagulation Comments Problem\Assessment\Plan Additional Plan Assessment and plan: Patient has decided to stay for coronary bypass grafting. He requires left subclavian stent prior so that internal mammary will not be affected. He has severe left anterior descending diagonal bifurcation stenosis poor for intervention and moderate to severe distal left circumflex supplying a large posterolateral branch. RADHA MELENDEZ MD Feb 07, 2025 13:03
--- NOTE | 2025-02-07 13:24 | RADIOLOGY REPORT ---
EXAM: CT CT CHEST History: ascending aortic atherosclerosis, leukocytosis Comparison Study: None TECHNIQUE: Multidetector CT of the chest was performed. Imaging was performed without IV contrast. Ax ial, coronal, and sagittal multiplanar reformats were obtained from the axial data set by the technol ogmarc. Radiation Dose : CTDI vol 15.24 mGy, DLP 607.48 mGy*cm. Findings: Lungs: The lungs are clear. Pleura: Unremarkable Heart/Great vessels: No cardiomegaly. Small pericardial effusion. Moderate coronary atherosclerosis. Mediastinum: Unremarkable Soft tissues/Bones: Mild multilevel degenerative changes of the thoracic spine. Sequela of chronic pancreatitis. Postsurgical changes near the GE junction. The partially visualized upper abdomen is within normal limits. Impression: 1. No acute cardiopulmonary disease. 2. Small pericardial effusion.
--- NOTE | 2025-02-07 15:03 | PROGRESS NOTE- Residence ---
Progress Note - Resident Providers to CC Resident Creating Document: ROSENDO PEÑA RES ~ Antibiotic Timeout Antibiotic Ordered?: No Subjective Patient was seen and examined at bedside, had a conversation along with [facility] surgeon Dr. Mazariegos with the patient and explained him regarding the need for CABG on Saturday. He was also explained regarding the chances of bleeding as patient was on dual antiplatelet therapy during this hospital stay. Patient understands the risks but also outweighs the benefits of CABG surgery. Objective Vital Signs Date Time Temp Pulse Resp B/P (MAP) Pulse Ox O2 Delivery O2 Flow Rate FiO2 02/07/25 12:42 163 02/07/25 11:03 97.7 16 140/85 (103) 99 Room Air 02/03/25 10:20 0 Result Diagram: 02/07/25 0511 02/07/25 0511 General: Elderly male, AAO x4, not in apparent distress Head: Normocephalic with an atraumatic Eyes: Pupils- 3mm, reacting to light, conjunctiva- anicteric Nose and throat: No polyps, septum- normal, no mucosal ulcers Neck: Supple, no lymphadenopathy, no carotid bruit Respiratory: No use of accessory muscles of respiration, Bilateral normal breath sounds heard. No wheeze, rhochi or creps Cardiac: S1-S2 heard, rythm regular, no gallop/murmur Abdomen: non distended, no tenderness, no organomegaly, bowel sounds- heard Extremities: no clubbing, no pedal edema, no deformities, peripheral pulses- 2+ Skin: warm and dry, no rash, no purpura Neuro: No focal deficit, gross cranial nerve exam- normal Coagulation Studies Laboratory Tests Test 02/03/25 10:20 02/04/25 16:06 Prothrombin Time 10.4 SECONDS (9.0-12.0) INR International Normalized Ratio 1.0 INR Activated Partial Thromboplast Time 32 SECONDS (22-32) APTT (Heparin Protocol) 31 SECONDS (45-60) L Coagulation Comments Advance Care Planning Advanced Care plannin - 30 Minutes Assessment Assessment 64-year-old male, chronic smoker, presented to the ED with chief complaints of chest pain Plan Plan NSTEMI -undergone cardiac catheterization on 02/03 which showed 80-85% proximal and mid LAD, 90% left subclavian stenosis, 60% diagonal, 25% RCA Initially Dr. Escalante recommended Cardiothoracic consultation and stent for left subclavian stenosis. -[facility] surgeon Dr. Mazariegos consulted, however patient does not want to undergo CABG as patient is not undergoing CABG left subclavian stenting is not done. Patient is okay with getting angiogram and stent placed. Informed to Dr. Escalante and he will, talk to the patient today. -2D echo showed ejection fraction of 45-50% -continue aspirin, Plavix, atorvastatin -continue metoprolol and lisinopril 02/07/2025: Had an extensive conversation with [facility] surgeon Dr. Mazariegos, recommended CABG surgery on Saturday (02/09/2025) Patient to undergo left subclavian stenting tomorrow by Dr. Danyel Kang NPO from 6:00 a.m. tomorrow Stopped aspirin and Plavix until surgery Stat troponins ordered: 947, trending down from the previous troponin levels Noncontrast chest CT was ordered: Small pericardial effusion with no other acute pathologies Called blood bank for arrangement of platelets for possible need during surgery HYPERTENSIVE EMERGENCY- resolved HTN Patient has initially had high blood pressures in the 210/110mmhg, which was treated with metoprolol and hydralazine. His blood pressure is better now, is currently on amlodipine, lisinopril and metoprolol. Continue amlodipine at 5 mg bid, lisinopril 40 mg od, and metoprolol to 50 mg once daily SUBCLAVIAN STEEL STENOSIS Patient's cath report showed left subclavian steal stenosis 90% Stenting tomorrow in a.m. by Dr. ALANA Kang Hypercholestrolemia Continue Lipitor 80 mg once daily Tobacco use Long-standing history of cigarette smoking used to smoke 1pack per day for 30 years. He currently smokes 10 cigarettes/day for the last year. Counselled for smoking cessation. Code Status: Full code Lines/Tubes: PIV Nutrition: Heart healthy diet Prognosis: Guarded Disposition: Subclavian stenting tomorrow; CABG on Saturday Rosendo Peña MD Internal Medicine Resident, PGY-2 Date of Service: Feb 07, 2025 Billing Provider: PEDRITO SILVESTRE MD Common Visit Codes: 89683-[id number] INP/OBS CARE(HIGH) ROSENDO PEÑA, RES Feb 07, 2025 15:03 PEDRITO SILVESTRE MD Mar 01, 2025 15:30
[2025-02-07] MEDS: metroNIDAZOLE-Flagyl 500mg/NS 100 ML IV SCH (19:14)
[2025-02-08] VITALS (15 sets, daily range): BP systolic 105–154; BP diastolic 69–92; PULSE 71–89; RESP 14–21; TEMP 97.5–98.2; O2SAT 94–98
[2025-02-08 06:48] LABS: MEAN PLATELET VOLUME 7.4 FL (7.4-10.4); RED CELL DISTRIBUTION WIDTH 14.2 % (11.5-14.5)
[2025-02-08 07:38] LABS: CREATININE 1.16 MG/DL (0.60-1.10); TOTAL CARBON DIOXIDE 21.7 MMOL/L (24-32); eCRCL 65 ML/MIN; eGFR 64 ML/MIN
--- NOTE | 2025-02-08 08:55 | VASCULAR REPORT ---
Carotid Duplex Clinical History: Preoperative CABG evaluation Comparison: None Technique: Duplex Doppler evaluation of the extracranial carotid and vertebral arteries including color Doppler and spectral/pulsed waveform analysis was performed. Findings: RIGHT SIDE: The peak systolic velocities are 87 cm/s in the CCA, 86 cm/s in the ICA. The ICA/CCA ratio is 1.1. The external carotid artery is patent with peak systolic velocity of 115 cm/s proximally. The subclavian artery is patent with peak systolic velocity of 129 cm/s. There is appropriate antegrade flow in the right vertebral artery. LEFT SIDE: The peak systolic velocities are 109 cm/s in the CCA, 113 cm/s in the ICA. The ICA/CCA ratio is 1.03 . The external carotid artery is patent with peak systolic velocity of 140 cm/s proximally. The subclavian artery is patent with peak systolic velocity of 45 cm/s. There is retrograde flow in the left vertebral artery. IMPRESSION: Less than 50% stenosis of bilateral carotid systems based on peak systolic velocity criteria and athe rosclerotic plaque. Retrograde flow is present in the left vertebral artery suggesting subclavian steal. Clinical correl ation advised. Abnormal monophasic waveforms in the left subclavian artery suggesting proximal obstruction. Reference: Radiology 2003; 229:340-346 Normal ICA PSV is <125 cm/sec and no plaque or intimal thickening is visible sonographically addition al criteria include ICA/CCA PSV ratio <2.0 and ICA EDV <40 cm/sec <50% ICA stenosis ICA PSV is <125 cm/sec and plaque or intimal thickening is visible sonographically additional criteria include ICA/CCA PSV ratio <2.0 and ICA EDV <40 cm/sec 50-69% ICA stenosis ICA PSV is 125-230 cm/sec and plaque is visible sonographically additional criter ia include ICA/CCA PSV ratio of 2.0-4.0 and ICA EDV of 40-100 cm/sec 70% ICA stenosis but less than near occlusion ICA PSV is >230 cm/sec and visible plaque and luminal narrowing are seen at miller-scale and color Doppler ultrasound (the higher the Doppler parameters lie above the threshold of 230 cm/sec, the greater the likelihood of severe disease) additional criteria include ICA/CCA PSV ratio >4 and ICA EDV >100 cm/sec
[2025-02-08] MEDS: normal saline 1000ml 1,000 ML IV SCH (09:10)
[2025-02-08] MEDS: MESSAGE TO PHARMACY IJ ONE (09:54)
[2025-02-08] MEDS: MESSAGE TO NURSING PO ONE ×5 (09:54→10:53)
--- NOTE | 2025-02-08 09:55 | VASCULAR REPORT ---
Bilateral lower extremity venous mapping Date: 02/08/2025 07:34 AM Clinical History: Preop CABG Comparison: None Findings: Duplex Doppler evaluation of the right and left lower extremity superficial veins was performed inclu ding color Doppler and spectral/pulsed waveform analysis. Measurements are provided below. RIGHT GREAT SAPHENOUS VEIN (GSV): 1.5 mm at the proximal thigh, normal compressibility with no mural thickening or thrombosis. 1.2 mm at the mid thigh, normal compressibility with no mural thickening or thrombosis. 1.2 mm at the distal thigh, normal compressibility with no mural thickening or thrombosis. 1.1 mm at the proximal calf, normal compressibility with no mural thickening or thrombosis. NA mm at the mid calf, NA mm at the distal calf The GSV is patent on duplex Doppler evaluation. LEFT GREAT SAPHENOUS VEIN (GSV): 2 mm at the proximal thigh, normal compressibility with no mural thickening or thrombosis. 2 mm at the mid thigh, normal compressibility with no mural thickening or thrombosis. 2.1 mm at the distal thigh, normal compressibility with no mural thickening or thrombosis. 1.6 mm at the proximal calf, normal compressibility with no mural thickening or thrombosis. 1.7 mm at the mid calf, normal compressibility with no mural thickening or thrombosis. 1.5 mm at the distal calf, normal compressibility with no mural thickening or thrombosis. The SSV is patent on duplex Doppler evaluation. IMPRESSION: Lower extremity superficial venous mapping as detailed above. END IMPRESSION:
[2025-02-08 10:04] LABS: APTT 32 SECONDS (22-32); INR 1.1 INR
[2025-02-08 11:22] LABS: ABG BASE EXCESS -2.8 mmol/L (-2.0-3.0); ABG HCO3 20.5 mmol/L (21.0-28.0); ABG OXYGEN SATURATION 95.6 % (94.0-98.0); ABG PCO2 (T) 30.8 mmHg (35.0-48.0); ABG PH (T) 7.439 (7.350-7.450); ABG PO2 (T) 73.5 mmHg (83.0-108.0); ALLEN'S TEST POSITIVE; FCOHb 0.7 % (0.5-1.5); FHHb 4.4 % (0.0-5.0); FIO2 21.0 mmHg/%; FMetHb 0.3 % (0.0-1.5); FO2Hb 94.6 % (94.0-98.0); MODE ROOM AIR; PATIENT TEMPERATURE 36.4; TOTAL HEMOGLOBIN 14.4 G/dl (13.5-17.5)
[2025-02-08 11:34] LABS: LEUKOCYTE ESTERASE ,URINE NEGATIVE (Neg); NITRITES, URINE NEGATIVE (Neg); OCCULT BLOOD,URINE SMALL (Neg)
[2025-02-08 11:41] LABS: UA COLLECTION TYPE VOIDED
[2025-02-08 11:46] LABS: MUCUS STRANDS NONE SEEN /LPF (Neg); SQUAMOUS EPITHELIAL CELL,UR NONE SEEN /LPF (FEW)
--- NOTE | 2025-02-08 11:50 | RADIOLOGY REPORT ---
DI CHEST,TWO VIEWS CLINICAL HISTORY: PRE CARDIAC SURGERY COMPARISON: None TECHNIQUE: Frontal and lateral view of the chest was obtained FINDINGS: Lines and Tubes: None Lungs: No focal consolidation. Pleura: No effusion. No pneumothorax. Cardiomediastinal contours: Unremarkable Bones: No acute osseous abnormality. IMPRESSION: No acute cardiopulmonary disease.
--- NOTE | 2025-02-08 12:16 | PROGRESS NOTE ---
Progress Note Cardiology Providers to CC ~ Subjective Subjective CARDIOLOGY PROGRESS NOTE: NON ST ELEVATED MYOCARDIAL INFARCTION. Initially patient declined to have coronary bypass grafting for severe multivessel coronary arterial disease not amenable to intervention. Then he changes mind. He is going to have a left subclavian stent for 95% stenosis in a.m.. Objective Result Diagram: 02/08/25 0550 02/08/25 0550 Objective Carotid no bruit chest clear to auscultation percussion heart no murmur no S3 gallop no rub. White blood count still mildly elevated. Coagulation Studies Laboratory Tests Test 02/04/25 16:06 02/08/25 09:28 APTT (Heparin Protocol) 31 SECONDS (45-60) L Prothrombin Time 11.6 SECONDS (9.0-12.0) INR International Normalized Ratio 1.1 INR Activated Partial Thromboplast Time 32 SECONDS (22-32) Coagulation Comments Problem\Assessment\Plan Additional Plan Assessment: Cardiac status stable. Plan multivessel coronary bypass grafting on 02/09. Left subclavian descending stent prior RADHA MELENDEZ MD Feb 08, 2025 12:16
--- NOTE | 2025-02-08 13:01 | CARDIOLOGY REPORT ---
APPROVED REPORT EXAM: Comprehensive 2D, Doppler, and color-flow Echocardiogram. Patient Location: ER MR 3 Blood Pressure: 135/100 mmHg Heart Rate: 96 bpm Indications Myocardial Infarction Shortness of Breath Hypertension Troponin: 3484 ProBNP: 2009 Coronary Artery Disease SALES DEVELOPMENT EXECUTIVE: Edson Escalante MD NO Previous ECHO 2D Dimensions LA Diam3.5 cm IVSd 1.3 (0.7-1.1cm) LVDd 4.8 cm PWd 1.3 (0.7-1.1cm) IVSs 1.4 (0.8-1.2cm) LVDs 3.7 (2.5-4.0cm) PWs 2.0 (0.8-1.2cm) LVOT Diameter 2.17 (1.8-2.4cm) LVEF(%) 44.8 (>50%) Ao Asc Diam.3.25 cm IVC 18.52 mmFS (%) 22.2 % SV 45.8 ml CO 4.9 L/min M-Mode Dimensions Left Atrium(MM) 3.33 (2.5-4.0cm) IVSd 0.92 (0.7-1.1cm) LVDd 4.76 (4.0-5.6cm) Aortic Root 3.33 (2.2-3.7cm) PWd 0.99 (0.7-1.1cm) Aortic Cusp Exc 2.08 (1.5-2.0cm) IVSs 1.61 cm MV EPSS 1.0 (<0.5cm) LVDs 3.55 (2.0-3.8cm) FS (%) 25 % PWs 1.17 cm ESV(Teich) 52.7 ml LVEF(%) 50 (>50%) Aortic Valve AoV Peak Reece. 125.9 cm/s AoV VTI 21.0 cm AO Peak GR. 6.3 mmHg AO Mean GR. 3 mmHg LVOT VTI 22.11 cm LVOT Peak Reece. 115.3 cm/s TERI(VTI)/BSA 3.89 cm2/m2 TERI (VTI) 3.89 cm2 AI P 1/2 Time 380 ms Mitral Valve MV E Velocity 65.5 cm/s MV Peak Gr. 4 mmHg MV DECEL TIME 76 ms MV A Velocity 132.7 cm/s MV PHT 44 ms E/A Ratio 0.5 MVA (PHT) 5.00 cm2 MV UAqa556.6 cm/s TDI Lateral E' P. V6.83 cm/s E/Lateral E' 9.6 Pulmonary Valve PAEDP12.88 mmHg Tricuspid Valve TR P. Velocity 262 cm/s RAP ESTIMATE 10 mmHg TR Peak Gr. 27 mmHg RVSP 37 mmHg LEFT VENTRICLE Normal LV size with lcqv-bn-goegcthvsv decreased function. Mild concentric hypertrophy. There is mild -to-moderate LV systolic dysfunction present. Overall estimated LVEF is 45-50%. RIGHT VENTRICLE RV is normal size and function. ATRIA The left atrium size is normal. AORTIC VALVE Trileaflet AV appears mildly sclerotic without stenosis. Trace insufficiency. MITRAL VALVE Mild mitral annular calcification without stenosis. Mild regurgitation. TRICUSPID VALVE The tricuspid valve is normal in structure with trace regurgitation. PULMONIC VALVE The pulmonary valve is normal in structure with physiologic insufficiency. GREAT VESSELS The aortic root is normal in size. The ascending aorta is normal in size. The IVC is normal in size a nd collapses >50% with inspiration. PERICARDIUM Normal pericardium. No effusion. Anterior epicardial fat pad is present. Other Information Study Quality: Adequate Conclusion There is jksv-nz-azhwbavv LV systolic dysfunction present. Overall estimated LVEF is 45-50%. Normal LV size with qqjg-si-ynlhhlszdd decreased function. Mild concentric hypertrophy. RV is normal size and function. Trileaflet AV appears mildly sclerotic without stenosis. Trace insufficiency. Mild mitral annular calcification without stenosis. Mild regurgitation. The tricuspid valve is normal in structure with trace regurgitation. The pulmonary valve is normal in structure with physiologic insufficiency. Normal pericardium. No effusion. Anterior epicardial fat pad is present.
[2025-02-08] MEDS ORDERED: LIDOcaine 1% 30ml preserv. free vial ONE (15:58)
[2025-02-08] MEDS ORDERED: midazolam 1 mg/ML 2ml injection ONE ×2 (15:58→16:37)
[2025-02-08] MEDS ORDERED: fentaNYL/PF 50MCG/1 ML 2ML syringe ONE (15:58)
[2025-02-08] MEDS ORDERED: heparin 1,000unit/ml 10ml vial 10 ML ONE (15:58)
--- NOTE | 2025-02-08 18:01 | ELECTROCARDIOGRAPH REPORT ---
[facility] Test Date: 2025-02-08 Test Time: 17:59:30 Pat Name: ROSARIO LIZ Department: [facility] 3S Patient ID: [facility]-[id number] Room: [place] [address] B Gender: M Supervisor Counseling And Guidance: CATHIE : 1960 Requested By: DILSHAD VASQUEZ Order Number: [id number] Reading MD: Dr. CARLOS Ellington Measurements Intervals [place] Rate: 75 P: 56 MT: 160 QRS: 59 QRSD: 124 T: -43 QT: 412 QTc: 461 Interpretive Statements Sinus rhythm IVCD, consider atypical RBBB Inferior infarct, age indeterminate Electronically Signed On 02-09-2025 13:24:[address] CARLOS Ellington Please click the below link to view image of tracing.
[2025-02-08] MEDS ORDERED: ASPI-1265 PO (19:16)
[2025-02-08] MEDS ORDERED: ATOR20TA66 PO (19:16)
[2025-02-08] MEDS ORDERED: METO-395 PO (19:16)
[2025-02-08] MEDS ORDERED: NITR0.4T48 SL (19:16)
[2025-02-08] MEDS ORDERED: LISI20TA28 PO (19:16)
[2025-02-08] MEDS ORDERED: CLOP75TA34 PO (19:16)
[2025-02-08] MEDS ORDERED: NICO-631 TOP (19:16)
[2025-02-08] MEDS ORDERED: AMLO5TAB16 PO (19:16)
[2025-02-08] MEDS ORDERED: mupirocin 2% nasal ointment 1gm UD NS SCH (20:00)
[2025-02-09] MEDS ORDERED: ceFAZolin 2gm/dext,iso 50mL 50 ML IV ONE (05:30)
[2025-02-09] MEDS ORDERED: ringers solution, lacted 1,000 ML IV ONE (05:30)
[2025-02-09] MEDS ORDERED: VANCOMYCIN/H2O 1.5g/300mL PB 300 ML IV ONE (05:30)
[2025-02-09] MEDS ORDERED: dextrose 50%-water 50ml dispensing syringe IV PRN (05:30)
[2025-02-09] MEDS ORDERED: Insulin Reg/NS 100units/100mL 100 ML IV SCH (05:30)
[2025-02-09] MEDS ORDERED: insulin glargine (Lantus) pen - multi-dose SQ PRN (05:30)
--- NOTE | 2025-02-09 08:31 | DISCHARGE SUMMARY-Residence ---
Discharge Summary Providers to CC Resident Creating Document: ROSENDO PEÑA, RES ~ Discharge Summary Admission Diagnosis: NSTEMI Hospital Course DATE OF ADMISSION: 02/03/2025 DATE OF DISCHARGE: 02/09/2025 Discharge Diagnosis\Comment: NSTEMI (Non-ST Elevation Myocardial Infarction) Multivessel Coronary Artery Disease Severe Left Subclavian Artery Stenosis (successfully stented) Hypertensive Emergency resolved Hyperlipidemia Tobacco Use Disorder Golg-jg-Lyamnlos LV Systolic Dysfunction (EF 4550%) Operations\Procedures: Cardiac catheterization by Dr. Escalante Subclavian stent placement by Dr. ALANA Kang Consultants: Cardiology [facility] Complications: None Condition on DC: Stable New Medications: Amlodipine Besylate (Amlodipine Besylate) 5 Mg Tablet 1 TAB PO BID for 30 Days, #60 TAB 0 Refills Aspirin (Aspirin) 81 Mg Tab.chew 1 TAB PO DAILY for 30 Days, #30 TAB.CHEW Atorvastatin Calcium (Atorvastatin Calcium) 20 Mg Tablet 40 MG PO DAILY for 30 Days, #60 TAB Clopidogrel Bisulfate (Clopidogrel) 75 Mg Tablet 75 MG PO DAILY for 30 Days, #30 TAB Lisinopril (Lisinopril) 20 Mg Tablet 2 TAB PO DAILY for 30 Days, #60 TAB Metoprolol Succinate (Metoprolol Succinate) 25 Mg Tab.sr.24h 25 MG PO DAILY for 30 Days, #30 TAB.SR 0 Refills Nicotine 14 MG Patch* (Habitrol 14 MG Patch*) 1 Each Patch.td24 1 PATCH TOP DAILY for smoking cessation for 28 Days, #28 PATCH Nitroglycerin (Nitroglycerin) 0.4 Mg Tab.subl 0.4 MG SL Q10MIN for 1 Day, #3 TAB Discharge Summary: A 64-year-old male with a significant history of chronic tobacco use and hyperlipidemia, presented to the emergency department with acute-onset chest pain. His initial electrocardiogram (EKG) revealed changes consistent with a non-ST elevation myocardial infarction (NSTEMI). He was promptly started on the NSTEMI protocol, including aspirin, atorvastatin, and heparin drip, and was evaluated by cardiology (Dr. Escalante). A coronary angiogram performed on 02/03 demonstrated severe multivessel coronary artery disease, with 8085% stenosis of the proximal and mid-left anterior descending artery (LAD), 90% stenosis of the left subclavian artery, and additional lesions including 60% in the diagonal artery and 25% in the right coronary artery (RCA). Given the extent and location of disease, Cardiothoracic Surgery (CTVS) consultation was requested, and Dr. Mazariegos was consulted for evaluation for coronary artery bypass grafting (CABG). However, the patient initially declined surgery. It was discussed that if CABG were to be pursued, left subclavian stenting would be required first to ensure patency of the left internal mammary artery (POOLE) graft site. As the patient preferred non-surgical management, the decision was made to proceed with medical therapy and outpatient stenting, with follow-up arranged with cardiology. During hospitalization, the patient had hypertensive emergency on admission (BP 210/110 mmHg), which was initially managed with IV nitroglycerin, and later transitioned to oral agents including metoprolol, lisinopril, and amlodipine. His blood pressure normalized, and symptoms improved. The patient was started on aspirin, Plavix, atorvastatin, and beta-gemma therapy, and received smoking cessation counseling, which he was receptive to. On 02/07, in light of persistent symptoms and high-risk anatomy, a renewed discussion with [facility]VS led to a reconsideration of CABG. The patient agreed to undergo left subclavian artery stenting, which was scheduled with Dr. Edward Kang for the following morning. Aspirin and Plavix were held in anticipation of the procedure. Non-contrast CT chest showed a small pericardial effusion without other acute pathology. Blood bank was contacted for preparation of platelets in case of intraoperative need. On 02/08, the patient underwent successful left subclavian artery stenting by Dr. Kang. The procedure was smooth and without complications. As a result of the excellent outcome, Dr. Kang and the cardiology team determined that CABG would no longer be necessary. The decision was made to continue medical management and defer surgical revascularization. Throughout the hospitalization, the patient remained hemodynamically stable and was able to ambulate without chest pain or dyspnea. His 2D echocardiogram showed fjvg-qs-gxqzquwf left ventricular systolic dysfunction with an ejection fraction of 4550%, and a left ventriculogram revealed regional wall motion abnormalities. His troponins had trended down significantly by discharge. He was discharged home in stable condition with the following recommendations Dr. Mazariegso, CTVS surgeon called the same day of subclavian stent placement and recommended immediate discharge in 10 minutes due to the closure of pharmacies. He also claimed that patient would not benefit with the CABG surgery per cardiology Dr. ALANA Kang. Hence patient was discharged as per recommendation of [facility] surgeon and cardiology team. Physical examination: General: Elderly male, AAO x4, not in apparent distress Head: Normocephalic with an atraumatic Eyes: Pupils- 3mm, reacting to light, conjunctiva- anicteric Nose and throat: No polyps, septum- normal, no mucosal ulcers Neck: Supple, no lymphadenopathy, no carotid bruit Respiratory: No use of accessory muscles of respiration, Bilateral normal breath sounds heard. No wheeze, rhochi or creps Cardiac: S1-S2 heard, rythm regular, no gallop/murmur Abdomen: non distended, no tenderness, no organomegaly, bowel sounds- heard Extremities: no clubbing, no pedal edema, no deformities, peripheral pulses- 2+ Skin: warm and dry, no rash, no purpura Neuro: No focal deficit, gross cranial nerve exam- normal Laboratory Tests Test 02/07/25 10:53 02/08/25 05:50 02/08/25 09:28 02/08/25 10:20 Troponin I High Sensitivity 974 ng/L White Blood Count 14.7 X10'3 Red Blood Count 4.57 X10'6 Hemoglobin 13.5 g/dl Hematocrit 39.8 % Mean Corpuscular Volume 87.0 FL Mean Corpuscular Hemoglobin 29.5 PG Mean Corpuscular Hemoglobin Concent 33.9 g/dL Red Cell Distribution Width 14.2 % Platelet Count 513 X10'3 Mean Platelet Volume 7.4 FL Neutrophils (%) (Auto) 70.8 % Lymphocytes (%) (Auto) 15.0 % Monocytes (%) (Auto) 10.3 % Eosinophils (%) (Auto) 2.8 % Basophils (%) (Auto) 1.1 % Neutrophils # (Auto) 10.4 X10'3 Lymphocytes # (Auto) 2.2 X10'3 Monocytes # (Auto) 1.5 X10'3 Eosinophils # (Auto) 0.4 X10'3 Basophils # (Auto) 0.2 X10'3 CBC Comment Sodium Level 140 MMOL/L Potassium Level 3.7 MMOL/L Chloride Level 106 MMOL/L Carbon Dioxide Level 21.7 MMOL/L Anion Gap 12 Blood Urea Nitrogen 19 MG/DL Creatinine 1.16 MG/DL Estimated GFR/1.73 m2 64 ML/MIN BUN/Creatinine Ratio 16.4 Glucose Level 102 MG/DL Calcium Level 8.9 MG/DL Magnesium Level 2.3 MG/DL Total Bilirubin 0.4 MG/DL Aspartate Amino Transf (AST/SGOT) 36 U/L Alanine Aminotransferase (ALT/SGPT) 86 U/L Alkaline Phosphatase 63 IU/L Total Protein 7.1 G/DL Albumin 3.0 G/DL Globulin 4.1 G/DL Albumin/Globulin Ratio 0.7 Chemistry Comments Prothrombin Time 11.6 SECONDS INR International Normalized Ratio 1.1 INR Activated Partial Thromboplast Time 32 SECONDS Coagulation Comments Urine Specimen Description Voided Urine Color Yellow Urine Clarity Clear Urine pH 6.0 Urine Specific [place] 1.010 Urine Protein 30 mg/dl Urine Glucose (UA) Negative mg/dl Urine Ketones Negative mg/dl Urine Occult Blood Small Urine Nitrite Negative Urine Bilirubin Negative Urine Urobilinogen 0.2 E.U/dL Urine Leukocyte Esterase Negative Urine RBC 3-10 /HPF Urine WBC 0-4 /HPF Urine Squamous Epithelial Cells None seen /LPF Urine Bacteria Few /HPF Urine Mucus None seen /LPF Urine Culture Indicated Not ind Volume Urine Centrifuged 10 ml Urine Comment Test 02/08/25 11:19 02/08/25 14:16 Blood Gas Specimen Type Arterial Blood Gas Puncture Site Rr O2 Saturation 95.6 % Arterial Blood pH (Temp corrected) 7.439 Arterial Blood pCO2 (Temp correct) 30.8 mmHg Arterial Blood pO2 (Temp corrected) 73.5 mmHg Arterial Blood PO2/FiO2 Ratio 3.64 mmHg/% Arterial Blood HCO3 20.5 mmol/L Arterial Blood Base Excess -2.8 mmol/L Arterial Blood Oxyhemoglobin 94.6 % Arterial Blood Carboxyhemoglobin 0.7 % Arterial Blood Methemoglobin 0.3 % Arterial Blood Deoxyhemoglobin 4.4 % Bryan Test Positive Blood Gas Hemoglobin 14.4 G/dl Blood Gas Temperature 36.4 Blood Gas Modality Room air FiO2 21.0 mmHg/% Miscellaneous Test See comments Advise on discharge: Continue aspirin, Plavix, atorvastatin 80 mg, metoprolol, lisinopril, and amlodipine Follow-up with Dr. Escalante (cardiology) and arrange referral for long-term management Strict blood pressure monitoring at home, with a goal of <120/80 mmHg Avoid blood pressure measurements in the left arm Follow DASH or Mediterranean diet Continue efforts toward smoking cessation Return to the ER if he experiences any new or worsening chest pain, shortness of breath, or dizziness *Problems/Diagnosis: (1) NSTEMI (non-ST elevated myocardial infarction) Status: Acute (2) Hypertensive emergency Status: Acute Total Time Spent on D/C: Up to 30 Minutes Date of Service: Feb 09, 2025 Billing Provider: PEDRITO SILVESTRE MD Common Visit Codes: 55636-HLF/OBS DISCH DAY >30min ROSENDO PEÑA, RES Feb 09, 2025 08:30 PEDRITO SILVESTRE MD Mar 01, 2025 15:31
--- NOTE | 2025-02-16 13:28 | PROCEDURE NOTE - Respiratory ---
Procedure Note-Respiratory Providers to CC Copies To 1: RADHA MELENDEZ MD Procedure Name: This is a spirometry study dated February 08, 2025. Spirometry measurements: The forced vital capacity is at the lower limit of normal. The FEV1 is somewhat reduced. The FEV1 ratio is also reduced. All of the measured flow rates show significant reduction. Bronchodilator was not administered as part of the study. Conclusion: This study is abnormal. There is evidence for obstructive ventilatory defect in the apbx-gt-oefrtqfm category. This suggests a diagnosis of smoking-related COPD. It is strongly recommended that the patient abstain from cigarette smoking. We have no previous studies for comparison. JAMIE CHAVEZ MD Feb 16, 2025 13:28
[2025-02-18] MEDS ORDERED: LISI20TA28 PO (17:32)
[2025-02-18] MEDS ORDERED: METO-395 PO (17:32)
[2025-02-18] MEDS ORDERED: ATOR20TA66 PO (17:32)
[2025-02-18] MEDS ORDERED: AMLO5TAB PO (17:32)
[2025-02-18] MEDS ORDERED: CLOP75TA34 PO (17:32)
[2025-02-18] MEDS ORDERED: ASPI-920 PO (17:32)
--- NOTE | 2025-03-02 11:06 | CARDIOLOGY REPORT ---
DATE OF SERVICE: 02/08/2025 DICTATING PHYSICIAN: Harley Kang MD CARDIAC CATHETERIZATION REPORT DATE OF STUDY: 02/08/2025. PROCEDURES: * Access to the right common femoral artery. * Selective catheter placement in the left subclavian and left subclavian, left vertebral and left internal mammary artery angiography. * Conscious sedation monitoring time for 30 minutes. INDICATION: * High-grade stenosis. * Preop CABG. PHYSICIAN: Harley Kang M.D. DESCRIPTION OF PROCEDURE: After informed consent was obtained, the patient was brought to the lab where he was prepped and draped in the usual sterile fashion. A 6-[place] sheath was inserted into the right femoral artery. Thereafter, using a JR4 guiding catheter, the catheter was advanced over a 0.035 wire and the left subclavian artery engaged. The wire was removed. Selective angiography of the left subclavian, left vertebral and internal mammary artery was performed. Revascularization was then performed as described below. Using a 0.035 wire, the occluded ostial left subclavian was crossed. The 6-[place] sheath was exchanged for a 90-cm pinnacle sheath. Next, using a 6 x 40 mm balloon, angioplasty of the occluded left subclavian was performed. Following angioplasty, an 8 x 39 mm OmniLink Elite stent was advanced across the lesion and weight was deployed. Follow-up angiography revealed excellent angiographic results. FINDINGS: Occluded ostial left subclavian artery. IMPRESSION: Angioplasty/stenting of an occluded ostial left subclavian artery with an 8 x 39 OmniLink Elite stent with excellent angiographic results. Harley Kang MD TID: [id number] RECEIPT: [id number] YFN/KATERIN
== END 2025-02-08 22:14 | disposition home or self-care (01) | DRG 182 ==
LOC: ER 10:12 → ED HOLD 12:04 → PCU 3S 15:55
PROVIDERS: ADMIT Family Medicine; ATTEND Family Medicine
PROC: 4A023N7 Measurement of Cardiac Sampling and Pressure, Left Heart, Percutaneous Approach (ICD-10-PCS; principal; 2025-02-03)
PROC: B2111ZZ Fluoroscopy of Multiple Coronary Arteries using Low Osmolar Contrast (ICD-10-PCS; 2025-02-03)
PROC: B2151ZZ Fluoroscopy of Left Heart using Low Osmolar Contrast (ICD-10-PCS; 2025-02-03)
PROC: B41F1ZZ Fluoroscopy of Right Lower Extremity Arteries using Low Osmolar Contrast (ICD-10-PCS; 2025-02-03)
PROC: 037434Z Dilation of Left Subclavian Artery with Drug-eluting Intraluminal Device, Percutaneous Approach (ICD-10-PCS; 2025-02-08)
PROC: B3121ZZ Fluoroscopy of Left Subclavian Artery using Low Osmolar Contrast (ICD-10-PCS; 2025-02-08)
PROC: B31N1ZZ Fluoroscopy of Other Upper Arteries using Low Osmolar Contrast (ICD-10-PCS; 2025-02-08)
PROC: B31F1ZZ Fluoroscopy of Left Vertebral Artery using Low Osmolar Contrast (ICD-10-PCS; 2025-02-08)
DX: I21.4 Non-ST elevation (NSTEMI) myocardial infarction (principal); I11.0 Hypertensive heart disease with heart failure; I50.9 Heart failure, unspecified; F17.210 Nicotine dependence, cigarettes, uncomplicated; Z95.1 Presence of aortocoronary bypass graft; I16.1 Hypertensive emergency; I25.10 Atherosclerotic heart disease of native coronary artery without angina pectoris; I70.8 Atherosclerosis of other arteries; Z53.9 Procedure and treatment not carried out, unspecified reason; Z98.84 Bariatric surgery status; Z80.52 Family history of malignant neoplasm of bladder; Z82.3 Family history of stroke; Z87.11 Personal history of peptic ulcer disease; Z79.02 Long term (current) use of antithrombotics/antiplatelets
CPT/HCPCS: 36415; 36600; 37236; 71045; 71046; 71250; 80053; 80061; 80305; 81001; 82803; 83036; 83735; 83880; 84484; 85018; 85025; 85610; 85730; 86885; 86900; 86901; 86920; 87081; 93005; 93306; 93458; 93880; 93970; 94010; 94760; 96365; 96375; 96376; 99152; 99153; 99291; A4615; A6213; A6258; A6449; C1725; C1751; C1760; C1769; C1876; C1887; G0378; J0360; J1644; J1815; J2003; J2250; J3010; J3490; J7030; Q9967

== ENCOUNTER 2025-02-19 05:33 | Inpatient (IN) | payer MEDICAID ==
--- NOTE | 2025-02-18 13:20 | ELECTROCARDIOGRAPH REPORT ---
[facility] Test Date: 2025-02-18 Test Time: 13:15:30 Pat Name: ROSARIO LIZ Department: PRE/OP CARDIOLOGY Room: [facility] 2007 Gender: M Bun Icer: ANALIA : 1960 Requested By: IRENE HERNANDEZ Order Number: [id number] Reading MD: Dr. CARLOS Ellington Measurements Intervals [place] Rate: 66 P: 26 ME: 158 QRS: 68 QRSD: 126 T: -69 QT: 442 QTc: 464 Interpretive Statements Sinus rhythm IVCD, consider atypical RBBB Inferior infarct, age indeterminate Nonspecific T abnormalities, lateral leads Electronically Signed On 02-19-2025 17:31:[address] CARLOS Ellington Please click the below link to view image of tracing.
[2025-02-18 13:44] LABS: LEUKOCYTE ESTERASE ,URINE NEGATIVE (Neg); NITRITES, URINE NEGATIVE (Neg); OCCULT BLOOD,URINE SMALL (Neg)
[2025-02-18 13:45] LABS: MEAN PLATELET VOLUME 7.3 FL (7.4-10.4); UA COLLECTION TYPE NON-SPECIFIED
[2025-02-18 13:46] LABS: PRE OP HEMATOCRIT 40.7 % (42.0-52.0); PRE OP HEMOGLOBIN 13.7 g/dL (14.0-17.9); PRE OP PLATELET COUNT 798 X10'3 (140-440); RED CELL DISTRIBUTION WIDTH 14.2 % (11.5-14.5)
[2025-02-18 13:48] LABS: PRE OP WHITE BLOOD COUNT 16.1 10'3 (4.8-10.8)
[2025-02-18 13:56] LABS: PRE OP INR 1.2 INR; PRE OP PARTIAL THROMB. TIME 32.0 SECONDS (22-32); PRE OP PROTIME 11.8 SECONDS (9.0-12.0)
[2025-02-18 13:57] LABS: MUCUS STRANDS NONE SEEN /LPF (Neg); SQUAMOUS EPITHELIAL CELL,UR NONE SEEN /LPF (FEW)
[2025-02-18 13:59] LABS: CREATININE 1.26 MG/DL (0.60-1.10); PRE OP AST 36 U/L (10-37); PRE OP BILIRUB, TOTAL 0.5 MG/DL (0.0-1.0); PRE OP GLUCOSE 107 MG/DL (70-104); PRE OP POTASSIUM 3.7 MMOL/L (3.4-5.1); TOTAL CARBON DIOXIDE 21.8 MMOL/L (24-32); eGFR 58 ML/MIN
[2025-02-18 14:03] LABS: PRE OP ANION GAP 11 (8-16); PRE OP SODIUM 135 MMOL/L (135-145)
[2025-02-18 14:12] LABS: PRE OP ALT 96 U/L (30-65)
[2025-02-19] VITALS (32 sets, daily range): BP systolic 80–156; BP diastolic 44–77; PULSE 66–103; RESP 12–24; TEMP 97.7–98.6; O2SAT 95–100
[~2025-02-19] VITALS: Ht 175.3 cm; Wt 81.4 kg
[2025-02-19] MEDS: Insulin Reg/NS 100units/100mL 100 ML IV SCH ×2 (05:30→13:20)
[2025-02-19] MEDS: DOCUMENT DATE & TIME OF BETA-BLOCKER PO ONE (05:30)
[2025-02-19] MEDS: ceFAZolin 2gm/dext,iso 50mL 50 ML IV ONE (05:30)
[~2025-02-19 05:33] MED LIST: AMLO5TAB PO; ASPI-920 PO; ATOR20TA66 PO; CLOP75TA34 PO; LISI20TA28 PO; METO-395 PO; dextrose 50%-water 50ml dispensing syringe IV PRN; insulin glargine (Lantus) pen - multi-dose SQ PRN; midazolam 1 mg/ML 2ml injection IV PRN
[2025-02-19] MEDS: ringers solution, lacted 1,000 ML IV SCH (06:33)
[2025-02-19] MEDS: metoprolol tartrate 12.5mg (1/2 tablet) PO ONE (06:34)
[2025-02-19] MEDS ORDERED: gelatin sponge, absorbable (Gelfoam 100) sponge TP ONE (06:35)
[2025-02-19] MEDS: mupirocin 2% nasal ointment 1gm UD NS ONE (06:35)
[2025-02-19] MEDS ORDERED: BUPIVAcaine 0.5% inj/PF 30 ML ONE (06:35)
[2025-02-19] MEDS: gelatin sponge, absorbable (Gelfoam-100 compressed) sponge TP ONE (07:00)
[2025-02-19] MEDS: midazolam 1 mg/ML 2ml injection IV ONE (07:47)
[2025-02-19] MEDS ORDERED: MIDAZolam 1 MG/ML 5ML VIAL ONE (07:51)
[2025-02-19] MEDS ORDERED: SUfentanil 50mcg/ml 1ml amp IV ONE (07:52)
[2025-02-19] MEDS ORDERED: propofol inj 20 ML IV ONE (07:52)
[2025-02-19] MEDS ORDERED: rocuronium 10mg/ml inj IV ONE ×4 (07:55→10:00)
[2025-02-19 08:32] LABS: ABG BASE EXCESS -1.7 mmol/L (-2.0-3.0); ABG HCO3 22.4 mmol/L (21.0-28.0); ABG OXYGEN SATURATION 99.0 % (94.0-98.0); ABG PCO2 35.6 mmHg (35.0-48.0); ABG PH 7.416 (7.350-7.450); ABG PO2 215.8 mmHg (83.0-108.0); CL (ABG) 107 mmol/L (98-107); FCOHb 0.3 % (0.5-1.5); FHHb 1.0 % (0.0-5.0); FMetHb 0.3 % (0.0-1.5); FO2Hb 98.4 % (94.0-98.0); GLUCOSE (ABG) 112 mg/dl (65-95); IONIZED CA (ABG) 1.21 mmol/L (1.15-1.33); K (ABG) 4.1 mmol/L (3.40-4.50); TOTAL HEMOGLOBIN 12.5 G/dl (13.5-17.5)
[2025-02-19 08:41] LABS: ACT @ 1.70 U 333 SEC (193-297); ACT @ 2.84 U 491 SEC (260-420); BASELINE ACT 165 SEC (101-148); PATIENT WEIGHT 75.0k KG
[2025-02-19] MEDS ORDERED: protamine sulf. 10mg/ml inj. IV ONE (08:47)
[2025-02-19 10:09] LABS: ACTIVATED CLOTTING TIME 975.0 SEC (101-148)
[2025-02-19 10:40] LABS: ABG BASE EXCESS -2.0 mmol/L (-2.0-3.0); ABG HCO3 23.0 mmol/L (21.0-28.0); ABG OXYGEN SATURATION 99.5 % (94.0-98.0); ABG PCO2 39.7 mmHg (35.0-48.0); ABG PH 7.380 (7.350-7.450); CL (ABG) 105 mmol/L (98-107); FCOHb 0.2 % (0.5-1.5); FHHb 0.5 % (0.0-5.0); FMetHb 0.2 % (0.0-1.5); FO2Hb 99.1 % (94.0-98.0); GLUCOSE (ABG) 135 mg/dl (65-95); IONIZED CA (ABG) 1.00 mmol/L (1.15-1.33); K (ABG) 5.0 mmol/L (3.40-4.50); TOTAL HEMOGLOBIN 7.5 G/dl (13.5-17.5)
[2025-02-19 10:54] LABS: ACTIVATED CLOTTING TIME 730.0 SEC (101-148)
[2025-02-19] MEDS: ipratropium/albuterol 3ml nebule IH SCH (11:00)
[2025-02-19 11:11] LABS: ABG BASE EXCESS -2.9 mmol/L (-2.0-3.0); ABG HCO3 22.0 mmol/L (21.0-28.0); ABG OXYGEN SATURATION 99.5 % (94.0-98.0); ABG PCO2 38.8 mmHg (35.0-48.0); ABG PH 7.372 (7.350-7.450); CL (ABG) 107 mmol/L (98-107); FCOHb 0.3 % (0.5-1.5); FHHb 0.5 % (0.0-5.0); FMetHb 0.1 % (0.0-1.5); FO2Hb 99.1 % (94.0-98.0); GLUCOSE (ABG) 164 mg/dl (65-95); IONIZED CA (ABG) 1.03 mmol/L (1.15-1.33); K (ABG) 4.7 mmol/L (3.40-4.50); TOTAL HEMOGLOBIN 8.0 G/dl (13.5-17.5)
[2025-02-19 11:21] LABS: ACTIVATED CLOTTING TIME 554.0 SEC (101-148)
[2025-02-19 12:08] LABS: ABG BASE EXCESS -3.1 mmol/L (-2.0-3.0); ABG HCO3 22.6 mmol/L (21.0-28.0); ABG PCO2 43.8 mmHg (35.0-48.0); ABG PH 7.331 (7.350-7.450); CL (ABG) 108 mmol/L (98-107); FCOHb 0.4 % (0.5-1.5); FHHb 21.8 % (0.0-5.0); FMetHb 0.4 % (0.0-1.5); FO2Hb 77.4 % (94.0-98.0); GLUCOSE (ABG) 176 mg/dl (65-95); IONIZED CA (ABG) 1.20 mmol/L (1.15-1.33); K (ABG) 4.3 mmol/L (3.40-4.50); TOTAL HEMOGLOBIN 7.6 G/dl (13.5-17.5)
[2025-02-19 12:11] LABS: ACTIVATED CLOTTING TIME 126 SEC (101-148)
--- NOTE | 2025-02-19 13:15 | POSTOPERATIVE RECORDS ---
Postoperative Records Providers to CC ~ Date of Procedure: Feb 19, 2025 Problems: (1) CAD (coronary artery disease) Post-Operative Diagnosis SAME as PRE-Op Procedure Performed CABG X 2, JUAN ligation, L EVH. Surgeon: Edward Purdy Topper Press Operator Automatic Neville Dawkins Anesthesiologist: Hieu Melchor Type of Anesthesia: General Findings: 0 Complications None. Estimated Blood Loss: See record. Specimen Removed: 0 Description of Procedure: POOLE to LAD, SVG to Diag. Counts reported as correct: Yes DILSHAD VASQUEZ Feb 19, 2025 13:15
[2025-02-19] MEDS ORDERED: bisacodyl 10mg suppository rectal RC PRN (13:20)
[2025-02-19] MEDS ORDERED: normal saline 250ml IV soln 250 ML IV PRN (13:20)
[2025-02-19] MEDS ORDERED: potassium Cl 40MEQ/1/2NS 520ml 520 ML IV PRN (13:20)
[2025-02-19] MEDS ORDERED: niCARDipine-NS 40mg/200ml IVPB 200 ML IV PRN (13:20)
[2025-02-19] MEDS ORDERED: mineral oil 133ml enema RC PRN (13:20)
[2025-02-19] MEDS ORDERED: magnesium sulf-water 4G/100mL 100 ML IV PRN (13:20)
[2025-02-19] MEDS ORDERED: nitroGLYCERIN-Tridil 50MG/D5W 250 ML IV PRN (13:20)
[2025-02-19] MEDS ORDERED: insulin glargine (Lantus) pen - multi-dose SQ PRN (13:20)
[2025-02-19] MEDS ORDERED: metoclopramide 5 mg/ml inj IV PRN (13:20)
[2025-02-19] MEDS ORDERED: dextrose 50%-water 50ml dispensing syringe IV PRN (13:20)
[2025-02-19] MEDS ORDERED: potassium CL 10mEq/100ml bag 100 ML IV PRN (13:20)
[2025-02-19] MEDS ORDERED: sodium phosphate inj. 30 MMOL in dextrose 5%-water 250 ML IV PRN (13:20)
[2025-02-19 13:44] LABS: ABG BASE EXCESS -5.0 mmol/L (-2.0-3.0); ABG HCO3 20.7 mmol/L (21.0-28.0); ABG OXYGEN SATURATION 98.5 % (94.0-98.0); ABG PCO2 (T) 38.5 mmHg (35.0-48.0); ABG PH (T) 7.341 (7.350-7.450); ABG PO2 (T) 132.5 mmHg (83.0-108.0); FCOHb 0.3 % (0.5-1.5); FHHb 1.5 % (0.0-5.0); FIO2 80.0 mmHg/%; FMetHb 0.3 % (0.0-1.5); FO2Hb 97.9 % (94.0-98.0); MODE VENT - SIMV/VC; PATIENT TEMPERATURE 35.7; PEEP 5 cm H2O; RESPIRATORY RATE 12 b/min; TIDAL VOLUME 500 mL; TOTAL HEMOGLOBIN 9.4 G/dl (13.5-17.5)
--- NOTE | 2025-02-19 13:56 | RADIOLOGY REPORT ---
CHEST RADIOGRAPH Indication: POST OP Technique: Single frontal view of the chest was obtained COMPARISON: DI CHEST,SINGLE VIEW on DOS: 02/03/25 FINDINGS: Lines and Tubes: Endotracheal tube, right central venous catheter, [place]-Gunner catheter, left chest tub es and mediastinal drains are in satisfactory position. Lungs: Multifocal left lung airspace disease. Pleura: No effusion. No pneumothorax. Cardiomediastinal contours: Cardiomegaly Bones: Unremarkable IMPRESSION: Lines and tubes in satisfactory position.
[2025-02-19 13:57] LABS: MEAN PLATELET VOLUME 7.0 FL (7.4-10.4); RED CELL DISTRIBUTION WIDTH 13.9 % (11.5-14.5)
[2025-02-19] MEDS: albumin (Human) 5% 250ml 250 ML IV PRN (14:06)
--- NOTE | 2025-02-19 14:08 | ELECTROCARDIOGRAPH REPORT ---
[facility] Test Date: 2025-02-19 Test Time: 14:05:41 Pat Name: ROSARIO LIZ Department: [facility] 2S Room: [facility] 2006 A Gender: M Front Office Administrator: ANALIA : 1960 Requested By: DILSHAD VASQUEZ Order Number: [id number] Reading MD: Dr. CARLOS Ellington Measurements Intervals [place] Rate: 100 P: 86 [place]: 160 QRS: 94 QRSD: 130 T: -62 QT: 402 QTc: 519 Interpretive Statements Sinus tachycardia RBBB and LPFB Inferior infarct, age indeterminate Probable lateral infarct, old Electronically Signed On 02-19-2025 17:32:[address] CARLOS Ellington Please click the below link to view image of tracing.
[2025-02-19 14:14] LABS: CREATININE 0.96 MG/DL (0.60-1.10); TOTAL CARBON DIOXIDE 22.1 MMOL/L (24-32); eCRCL 79 ML/MIN; eGFR 79 ML/MIN
[2025-02-19 14:21] LABS: PHOSPHORUS 2.5 MG/DL (2.3-4.5)
[2025-02-19] MEDS: dexmedetomidin/NS 400mcg/100ml 100 ML IV SCH (14:43)
--- NOTE | 2025-02-19 15:05 | PROCEDURE NOTE CC ---
Procedure Note CC Providers to CC ~ Procedure Name: Bronchocopy + BAL Description: Indication: L Atelectasis Sedation: Precedex Consent: Family Time-out: Done Description: Bronchoscope introduced through ETT without difficulty. Emilia nl in appearance. R Side with minimal secretions, nl mucosa L side with increase thick clear secretion. BAL performed. Mucosa nl. Complications: None EBL: 0ml Sepsis Screening Reassessment Date: Feb 19, 2025 PARVIZ HERRING MD Feb 19, 2025 15:05
[2025-02-19 15:19] LABS: APTT 33 SECONDS (22-32); INR 1.4 INR
[2025-02-19] MEDS: potassium Cl 20mEq/100mL bag 100 ML IV PRN (15:25)
[2025-02-19] MEDS: magnesium sulf-water 2g/50mL 50 ML IV PRN (15:26)
--- NOTE | 2025-02-19 16:39 | RADIOLOGY REPORT ---
EXAM: DI CHEST,SINGLE VIEW HISTORY: post op CXR, status post bronchoscopy. COMPARISON: DI CHEST,SINGLE VIEW on DOS: 02/19/25, DI CHEST,SINGLE VIEW on DOS: 02/03/25, CT scan of the chest dated 02/07/2025. TECHNIQUE: Portable supine AP view of the chest was performed. FINDINGS: Endotracheal tube is re-identified with its tip about 5.3 cm above the margoth. [place]-Gunner catheter is re-identified with its tip in the right main pulmonary artery. Postoperative changes of median sterno warren and 2 mediastinal drains, not well characterized here. Left lung opacities obscure the left hear t border and left hemidiaphragm. There is stable leftward shift of the heart and mediastinum. No pneu mothorax. IMPRESSION: 1. Recent postoperative changes of CABG, mechanical ventilation, and other tubes and lines as above. 2. Left hemithorax opacities likely representing a combination of atelectasis and effusion. There is associated leftward shift of the heart and mediastinum, stable versus chest x-ray performed earlier today. 3. The right lung is clear.
[2025-02-19] MEDS: ceFAZolin/D5W- 1GM premix 50 ML IV SCH (16:51)
[2025-02-19] MEDS: NORepinephrine 8mg/ 250ml NS 250 ML IV SCH (17:00)
[2025-02-19] MEDS: methylPREDNISolone sod succ/PF 40mg inj. IV SCH (17:13)
[2025-02-19] MEDS: ondansetron/PF 4mg/2ml inj IV PRN (17:29)
--- NOTE | 2025-02-19 17:57 | CARDIOLOGY REPORT ---
APPROVED REPORT EXAM: Intraoperative transesophageal 2D and color flow Doppler echocardiogram. Study contains pre- a nd post-op images. Patient Location: OR Blood Pressure: 135/72 mmHg Heart Rate: 70 bpm Rhythm: NSR Indications CORONARY ARTERY DISEASE TANIYA probe passed by Sarah Melchor MD TOOLING ENGINEERING TECH: Edson Escalante MD/CV Surgeon: Edward Sandy MD PREVIOUS ECHOCARDIOGRAM: LVEF 45-50%; m CLVH; m AV sclerosis; tr AI; m MAC; m MR; tr TR LEFT VENTRICLE PRE: Normal LV size with mild/moderatre dysfunction. Mild concentric hypertrophy. LVEF 40-45%. POST-O P: Slightly improved LVEF to 45-50%. RIGHT VENTRICLE PRE: RV is normal size and function. POST-OP: Unchanged. ATRIA PRE: The left atrium size is normal. Left atrial appendage is visualized in multiple planes and appea rs normal without debris. Left upper pulmonary vein identified and isolated by 2D and color Doppler. POST-OP: Unchanged. AORTIC VALVE PRE: Trileaflet AV appears mildly sclerotic without stenosis. Trace insufficiency. POST-OP: Unchange d. MITRAL VALVE PRE: Mitral valve is grossly normal in structure. Mild regurgitation. POST-OP: Unchanged. TRICUSPID VALVE PRE: TV appears structurally normal with trace regurgitation. POST-OP: Unchanged. PULMONIC VALVE PRE: Normal PV without stenosis with physiologic insufficiency. [place]-Gunner catheter in the right heart across the pulmonic valve. POST-OP: Unchanged. GREAT VESSELS PRE: Aortic root is normal in size. POST-OP: Unchanged. PERICARDIUM PRE: Normal pericardium. No effusion. POST-OP: Unchanged. CONCLUSION PRE: Normal LV size with mild/moderatre dysfunction. Mild concentric hypertrophy. LVEF 40-45%. POST-O P: Slightly improved LVEF to 45-50%. PRE: RV is normal size and function. POST-OP: Unchanged. PRE: T he left atrium size is normal. Left atrial appendage is visualized in multiple planes and appears nor mal without debris. Left upper pulmonary vein identified and isolated by 2D and color Doppler. POST- OP: Unchanged. PRE: Trileaflet AV appears mildly sclerotic without stenosis. Trace insufficiency. PO ST-OP: Unchanged. PRE: Mitral valve is grossly normal in structure. Mild regurgitation. POST-OP: Unch anged. PRE: TV appears structurally normal with trace regurgitation. POST-OP: Unchanged. PRE: Normal PV without stenosis with physiologic insufficiency. [place]-Gunner catheter in the right heart across the pulmonic valve. POST-OP: Unchanged. PRE: Aortic root is normal in size. POST-OP: Unchanged. PRE: N ormal pericardium. No effusion. POST-OP: Unchanged. Conclusion PRE: Normal LV size with mild/moderatre dysfunction. Mild concentric hypertrophy. LVEF 40-45%. PO ST-OP: Slightly improved LVEF to 45-50%. PRE: RV is normal size and function. POST-OP: Unchanged. PRE: The left atrium size is normal. Left atrial appendage is visualized in multiple planes and appe ars normal without debris. Left upper pulmonary vein identified and isolated by 2D and color Doppler. POST-OP: Unchanged. PRE: Trileaflet AV appears mildly sclerotic without stenosis. Trace insufficiency. POST-OP: Uncha nged. PRE: Mitral valve is grossly normal in structure. Mild regurgitation. POST-OP: Unchanged. PRE: TV appears structurally normal with trace regurgitation. POST-OP: Unchanged. PRE: Normal PV without stenosis with physiologic insufficiency. [place]-Gunner catheter in the right hea rt across the pulmonic valve. POST-OP: Unchanged. PRE: Aortic root is normal in size. POST-OP: Unchanged. PRE: Normal pericardium. No effusion. POST-OP: Unchanged.
[2025-02-19 19:42] LABS: MEAN PLATELET VOLUME 7.2 FL (7.4-10.4); RED CELL DISTRIBUTION WIDTH 13.6 % (11.5-14.5)
[2025-02-19] MEDS: mupirocin 2% nasal ointment 1gm UD NS SCH (19:44)
[2025-02-19] MEDS: vancomycin/NS 1 GM ADD-VANTAGE 250 ML IV SCH (19:44)
[2025-02-19 19:55] LABS: CREATININE 1.16 MG/DL (0.60-1.10); PHOSPHORUS 1.5 MG/DL (2.3-4.5); TOTAL CARBON DIOXIDE 20.4 MMOL/L (24-32); eCRCL 65 ML/MIN; eGFR 64 ML/MIN
[2025-02-19 20:55] LABS: ABG BASE EXCESS -5.1 mmol/L (-2.0-3.0); ABG HCO3 19.1 mmol/L (21.0-28.0); ABG OXYGEN SATURATION 97.0 % (94.0-98.0); ABG PCO2 (T) 31.1 mmHg (35.0-48.0); ABG PH (T) 7.405 (7.350-7.450); ABG PO2 (T) 90.9 mmHg (83.0-108.0); FCOHb 1.2 % (0.5-1.5); FHHb 3.0 % (0.0-5.0); FIO2 28.0 mmHg/%; FLOW 2 L/min; FMetHb 0.3 % (0.0-1.5); FO2Hb 95.5 % (94.0-98.0); MODE NASAL CANNULA; PATIENT TEMPERATURE 36.8; TOTAL HEMOGLOBIN 6.8 G/dl (13.5-17.5)
[2025-02-19] MEDS: potassium Cl 40MEQ/270ML bag 250 ML IV PRN (21:06)
[2025-02-19] MEDS: sodium phosphate inj. 15 MMOL in dextrose 5%-water 250 ML IV PRN (21:08)
[2025-02-19] MEDS: HYDROcodone/acetaminophen 10/325mg tab PO PRN (21:08)
[2025-02-20] VITALS (37 sets, daily range): BP systolic 92–139; BP diastolic 47–75; PULSE 69–119; RESP 13–30; TEMP 98.8–98.9; O2SAT 90–99
[2025-02-20] MEDS: HYDROcodone/acetaminophen 10/325mg tab PO PRN (01:06)
--- NOTE | 2025-02-20 01:08 | RADIOLOGY REPORT ---
Clinical History Post bronch/extubation Comparison CXR on 02/19/2025, 1 images. Technique: A single AP/PA chest radiograph was provided for review. Without Contrast ROSARIO LIZ, [id number] FINDINGS:/IMPRESSION: Low lung volumes. Left pleural effusion. Cardiomegaly. Mediastinal drain. 2 left-sided chest tubes. Right jugular [place]-Gunner catheter terminating in the right main pulmonary artery. Prior median sternotomy. Endovascular stent overlies the left upper chest. Surgical clips near the gastroesophageal junction. Suspect pulmonary vascular congestion. Possible left lower lobe consolidation/collapse. This report was electronically signed by Ifeanyi Nguyen MD on 02/20/2025 1:05:19 AM.
[2025-02-20 02:07] LABS: MEAN PLATELET VOLUME 7.5 FL (7.4-10.4); RED CELL DISTRIBUTION WIDTH 13.9 % (11.5-14.5)
[2025-02-20 02:13] LABS: APTT 31 SECONDS (22-32); INR 1.2 INR
[2025-02-20 02:14] LABS: CREATININE 0.89 MG/DL (0.60-1.10); PHOSPHORUS 3.1 MG/DL (2.3-4.5); TOTAL CARBON DIOXIDE 21.5 MMOL/L (24-32); eCRCL 85 ML/MIN; eGFR 86 ML/MIN
[2025-02-20] MEDS: morphine 4 MG/ML inj SYRINge IV PRN (04:04)
--- NOTE | 2025-02-20 06:17 | RADIOLOGY REPORT ---
EXAM: DI CHEST,SINGLE VIEW Indication: POST OP Technique: Single frontal view of the chest was obtained Comparison: DI CHEST,SINGLE VIEW on DOS: 02/19/25, DI CHEST,SINGLE VIEW on DOS: 02/19/25, DI CHEST,SING LE VIEW on DOS: 02/03/25 FINDINGS/IMPRESSION: Lines and Tubes: Interval removal of endotracheal tube. Mediastinal drains are visualized. Right cent ral venous catheter. Left chest tube is visualized. Lungs: Multifocal left lung consolidative opacities. Pleura: Possible left pleural effusion No pneumothorax. Cardiomediastinal contours: Cardiomegaly. Bones: No acute osseous abnormality.
[2025-02-20] MEDS: metoprolol tartrate 12.5mg (1/2 tablet) PO SCH (07:22)
--- NOTE | 2025-02-20 11:51 | PROGRESS NOTE ---
Progress Note CV Providers to CC ~ Central Line/PICC still needed: Yes Central Line/Picc Necessity: Hemodynamic Monitoring [place] Indications Met/Not Met: F/C Indications Met Antibiotics Ordered?: Yes If Yes, Indications?: surgical prophylaxis MRSA Education MRSA Education Provided: N/A Subjective Subjective Ambulating to chair, tolerating po, pain well controlled, Objective Vitals Vital Signs Date Time Temp Pulse Resp B/P (MAP) Pulse Ox O2 Delivery O2 Flow Rate FiO2 02/20/25 09:00 98.8 74 15 102/62 (76) 92 Nasal Cannula 3.0 104/69 (76) 02/20/25 08:05 28 Lab Results: 02/20/25 0139 02/20/25 0139 Objective Neuro: no deficits Chest: diminished on left Heart: RRR Abd: soft, non-tender Ext: trace edema Coagulation Studies Laboratory Tests Test 02/19/25 08:38 02/19/25 12:14 02/19/25 13:40 02/20/25 01:39 Patient Sex (Coag) M Patient Height (Coag) 175cm Patient Weight (Coag) 75.0k KG Patient Blood Volume 5580 ML Pump Volume 1500 ML Total Blood Volume 7080 ML Projected Heparin Concentration 1.7 MG/KG Heparin [place] 135 Calculated Heparin Bolus 77182 UNITS Activated Coagulation Time Baseline 165 SEC (101-148) H Activated Coag Time 1.70 U/mL 333 SEC (193-297) H Activated Coag Time 2.84 U/mL 491 SEC (260-420) H Heparin Level (COAG) 0 MG/KG Calculated Heparin Req (Hep Assay) 52285 UNITS Calculated Protamine Req (Hep Assay 0 MG Activated Clotting Time 126 SEC (101-148) Fibrinogen 271 MG/DL (177-424) Coagulation Clinical Comments Prothrombin Time 11.8 SECONDS (9.0-12.0) INR International Normalized Ratio 1.2 INR Activated Partial Thromboplast Time 31 SECONDS (22-32) Coagulation Comments Cardiac Rhythm: Sinus Rhythm Problem\Assessment\Plan Additional Plan POD#1 CABG x2, ligation of left atrial appendage. CT of chest shows complete consolidation of the left lower lobe. Will start aggressive pulm toilet. consider repeat bronchoscopy. DC art line DC reema PT/OT IRENE HERNANDEZ MD Feb 20, 2025 11:51
--- NOTE | 2025-02-20 13:10 | RADIOLOGY REPORT ---
Procedure: CT CT CHEST Reason for study/Clinical History: ABNORMAL CXR Comparison Study: CT CT CHEST on DOS: 02/07/25 Exam Date: 02/20/2025 10:48 AM TECHNIQUE: Multidetector CT of the chest was performed from the lung apices to the upper abdomen with out the use of intravenous contract. Coronal and sagittal multiplanar reformats were performed. Radiation Dose Information: CT Dose: CTDI volume is 17.5 mGy. Dose-length product is 651.7 mGy*cm The dose indicators for CT are the volume Computed Tomography (CT) Dose Index (CTDIvol) and the Dose Length Product (DLP), and are measured in units of mGy and mGy-cm, respectively. These indicators are not patient dose, but values generated from the CT scanner acquisition factors. The report includes radiation exposure data for exposures received during this examination. FINDINGS: Lower neck: Normal thyroid. Lungs: Left lower lobe consolidation with air bronchograms. Right lower lobe atelectasis. Pleura: Small anterior left pneumothorax likely postsurgical. Small left pleural effusion. Trace ri ght pleural effusion. Large bore left chest tube noted. Central airways: Patent. Heart/Vascular Structures: There are postsurgical changes involving the heart. Heart is enlarged. Th ere is right central venous catheter with the tip terminating in the superior vena cava. AICD / pace maker with right atrial and ventricular leads noted. There is a subclavian stent. There are drainage catheters terminating in the anterior mediastinum. There is a catheter terminating in the pericardiu m. Trace retrosternal fluid collection likely postsurgical. Pneumomediastinum likely postsurgical. Lymph Nodes: No adenopathy. Musculoskeletal: No acute osseous abnormality. Status post median sternotomy. Soft tissues: Normal. Upper abdomen: Grossly unremarkable. Chest wall: Anterior chest wall subcutaneous emphysema. IMPRESSION: 1. Status post cardiac surgery with expected postoperative changes. Small quantity retrosternal flui d which may be postsurgical. Pneumomediastinum also likely postsurgical. 2. Small left anterior left pneumothorax. Left large bore chest tube in place. 3. Bilateral pleural effusions, left greater than right. Left lower lobe consolidation which may ref lect atelectasis or pneumonia. Radiation optimization: All CT scans at this facility use at least one of these dose optimization ashley hniques: automated exposure control mA and/or kV adjustment per patient size (includes targeted exam s where dose is matched to clinical indication) or iterative reconstruction.
[2025-02-20] MEDS: acetaminophen 1,000mg/100ml IV 100 ML IV SCH (13:50)
--- NOTE | 2025-02-20 13:55 | VASCULAR REPORT ---
BILATERAL left upper extremity Arterial Duplex Date: 02/20/2025 12:45 PM Clinical History: Comparison: None Technique: Duplex Doppler evaluation including color Doppler and spectral/pulsed waveform analysis of the left u pper extremity arteries was performed. Finding: Left upper extremity artery velocities (cm/sec): Subclavian proximal artery: 182 Subclavian mid artery: 129 Subclavian distal artery: 109 Axillary artery: 80 Brachial proximal artery: 84 Brachial mid artery: 83 Brachial distal artery: 63 Radial artery proximal artery: 56 Radial distal artery: 69 Ulnar artery proximal artery: 64 Ulnar artery distal artery: 87 All waveforms are triphasic without stenosis or occlusion. IMPRESSION: 1. There is no evidence of high-grade arterial stenosis or occlusion in the left upper extremity adam marlon. Left subclavian artery patent.
[2025-02-20] MEDS: amiodarone 150mg/dext, iso-os 100 ML IV ONE (19:58)
[2025-02-20 20:19] LABS: CREATININE 0.99 MG/DL (0.60-1.10); PHOSPHORUS 3.6 MG/DL (2.3-4.5); TOTAL CARBON DIOXIDE 23.8 MMOL/L (24-32); eCRCL 76 ML/MIN; eGFR 76 ML/MIN
[2025-02-20] MEDS: amiodarone/D5 360MG/200ML BAG 200 ML IV SCH (20:41)
[2025-02-21] VITALS (28 sets, daily range): BP systolic 89–136; BP diastolic 51–90; PULSE 63–93; RESP 15–22; TEMP 97.4–97.5; O2SAT 91–96
[2025-02-21 02:32] LABS: MEAN PLATELET VOLUME 7.7 FL (7.4-10.4); RED CELL DISTRIBUTION WIDTH 14.6 % (11.5-14.5)
[2025-02-21 02:49] LABS: CREATININE 0.94 MG/DL (0.60-1.10); PHOSPHORUS 3.2 MG/DL (2.3-4.5); TOTAL CARBON DIOXIDE 23.5 MMOL/L (24-32); eCRCL 80 ML/MIN; eGFR 81 ML/MIN
[2025-02-21 02:54] LABS: LYMPHOCYTES % (MANUAL) 4.0 % (21-51); MONOCYTES % (MANUAL) 6.0 % (2-12); NEUTROPHILS % (MANUAL) 90.0 % (42-75); PLATELET ESTIMATE NORMAL
--- NOTE | 2025-02-21 05:27 | OPERATIVE REPORT ---
DATE OF SURGERY: 02/19/2025 DICTATING PHYSICIAN: Santiago Purdy MD PREOPERATIVE DIAGNOSES: * Coronary artery disease. * Hypertension. * Nicotine addiction. * Left subclavian artery ostial stenosis. POSTOPERATIVE DIAGNOSES: * Coronary artery disease. * Hypertension. * Nicotine addiction. * Left subclavian artery ostial stenosis. OPERATIONS PERFORMED: * Coronary artery bypass grafting with POOLE to LAD, saphenous vein graft to diagonal. * Endoscopic vein harvesting. * Ligation of the left atrial appendage. SURGEON: Santiago Purdy MD MEAT GRADING MACHINE OPERATOR: Vald Sanchez MD SECOND JOURNEYMAN PRESSMAN: Ifeanyi Hernandez. ANESTHESIOLOGIST: Dr. Melchor. ANESTHETIC: General plus local. DRAINS: A 32-[place]amb[place] right angle chest tube into the left pleural space, 24-[place]ian Scott into the pericardial wall, and a 28-[place] straight chest tube into the anterior mediastinal and right pleural space. COMPLICATIONS: None. DESCRIPTION OF PROCEDURE: The patient was taken to the operating room and placed on the table in the supine position. After anesthesia was induced, the groins, legs, and chest were prepped and draped in the usual sterile fashion. Next, a timeout was called and the patient was correctly identified by the surgeon and the OR staff. Next, a midline chest incision was made and carried out down to the sternum. The sternum was divided in the midline and hemostasis was obtained along the sternal edges. Next, the left MOHINDER was identified and taken down on the pedicle. Full heparin dose was given prior to distal division. CYNDI was then injected with 3 mL of papaverine and wrapped in a papaverine-soaked sponge. I did note not brisk flow from the CYNDI after it was divided. Next, the pericardium was opened and tacked with stay sutures. Palpation of the ascending aorta revealed no dense plaques. The intraoperative transesophageal echocardiogram revealed an EF of approximately 40-45%, trace mitral regurgitation, no wall motion abnormalities. Next, cannulation proceeded in the standard fashion with the aortic cannula placed in the distal ascending aorta and a venous cannula placed into the right atrium with a dual stage into the inferior vena cava. We commenced with cardiopulmonary bypass and cooling. A root vent was placed followed by a cardioplegic coronary catheter into the coronary sinus. Once the target temperature was reached, a cross-clamp was applied and the patient was administered both antegrade and retrograde cardioplegia. We noted good diastolic arrest after approximately 300 mL. Topical ice was used throughout the case. Next, attention was first turned to the diagonal branch. It was approximately 1.75 mm with a soft wall. I then opened it longitudinally in its midpoint and then proceeded to perform an end-to-side anastomosis with a 7-0 Prolene in a running fashion. Next, the LAD was opened in its midpoint. It did have quite thick and soft plaque in its wall. The opening showed it was a good spot with no dense calcifications. I put a probe proximally and distally. I again removed the bulldog vascular small clamp from the POOLE and noted somewhat improved flow. The pressure was around 50 at that time. This was somewhat noted due to the fact that the patient had a previous left subclavian artery stent and had not been on Plavix for the last 6 days. We did note a 10-mm difference when comparing the left and right arm blood pressure. I then proceeded to perform this anastomosis with a 7-0 Prolene in running fashion. The pedicle was tacked to the epicardium with interrupted 5-0 Prolene suture. Next, attention was turned to the proximal anastomosis. This was completed with a 6-0 Prolene in running fashion in the mid ascending aorta. At this point, we began our hotshot and allowed it to run retrograde for approximately 3 minutes. While venting the ascending aorta, cross-clamp was removed. We noted spontaneous return of a normal sinus cardiac rhythm. The retrograde cardioplegia catheter was removed. Once the target temperature normothermia was reached, we began the process of weaning from cardiopulmonary bypass. The vein graft had been de-aired. We were able to separate from cardiopulmonary bypass with minimal inotropic support. I was able to demonstrate brisk diastolic flow in both grafts. Of note, the left atrial appendage was ligated with the AtriClip prior to completing the proximal anastomosis of the vein graft. Next, I removed the venous cannula and removed the root vent as well as a retrograde cardioplegic catheter. We administered protamine and the patient tolerated it well. Initial survey of the surgical sites revealed some bleeding from the root vent site as well as the venous cannulation site and both were repaired with pledgeted Prolene sutures. We returned an appropriate amount of volume through the cannula and that too was then removed. Next, final surgical sites revealed good hemostasis. I then placed the chest tubes into the position as described above. Bipolar pacing wire was placed on the anterior surface of the right ventricle. Next, the sternal edges were approximated with wires followed by 3-layer chest wall closure. All of the instruments were accounted for at the end of the case. The patient tolerated the procedure well and was taken to the ICU in stable condition. Santiago Purdy MD TID: [id number] RECEIPT: [id number] DAVIDSON/SHARIF
--- NOTE | 2025-02-21 05:51 | RADIOLOGY REPORT ---
EXAM: DI CHEST,SINGLE VIEW HISTORY: POST OP COMPARISON: DI CHEST,SINGLE VIEW on DOS: 02/20/25, DI CHEST,SINGLE VIEW on DOS: 02/19/25, DI CHEST,SING LE VIEW on DOS: 02/19/25, DI CHEST,SINGLE VIEW on DOS: 02/19/25, DI CHEST,SINGLE VIEW on DOS: 02/03/25, c hest CT dated 02/20/2025. TECHNIQUE: Portable upright AP view of the chest was performed. FINDINGS: Opacities in the left mid to lower lung are re-identified with slightly improved aeration of the left upper lobe compared with the previous chest x-ray. The right lung remains clear. No pneumothorax. Emphysematous changes are better characterized on prior CT scan. The heart is enlarged. Postoperative changes of recent median sternotomy mediastinal drains, and left atrial appendage closure device re- identified. Right IJ central line is re-identified. IMPRESSION: 1. Cardiomegaly and recent postoperative changes the heart. 2. Consolidative infiltrates in the left mid to lower lung re-identified, with mildly improved aerati on of the left upper lobe. 3. Emphysema.
[2025-02-21] MEDS: pantoprazole 40mg Tablet.DR PO SCH (08:02)
--- NOTE | 2025-02-21 10:13 | PROGRESS NOTE ---
Progress Note CV Providers to CC CC: IRENE HERNANDEZ MD ~ Central Line/PICC still needed: No Kennedy Indications Met/Not Met: F/C Indications Not Met Antibiotics Ordered?: Yes If Yes, Indications?: possible pneumonia If Yes, Anticipated Duration?: until discharge Subjective Subjective Up in bed eating breakfast, pain control improved after getting behind this am Objective Vitals Vital Signs Date Time Temp Pulse Resp B/P (MAP) Pulse Ox O2 Delivery O2 Flow Rate FiO2 02/21/25 09:03 22 02/21/25 09:00 98.6 75 119/75 (90) 91 Nasal Cannula 3.0 02/21/25 08:32 32 Lab Results: 02/21/25 0205 02/21/25 0205 Objective Neuro: no deficits Chest: diminished on L, presumed to be stable Heart: RRR Abd: soft, non-tender Ext: bilat trace edema Coagulation Studies Laboratory Tests Test 02/19/25 08:38 02/19/25 12:14 02/19/25 13:40 02/20/25 01:39 Patient Sex (Coag) M Patient Height (Coag) 175cm Patient Weight (Coag) 75.0k KG Patient Blood Volume 5580 ML Pump Volume 1500 ML Total Blood Volume 7080 ML Projected Heparin Concentration 1.7 MG/KG Heparin [place] 135 Calculated Heparin Bolus 96358 UNITS Activated Coagulation Time Baseline 165 SEC (101-148) H Activated Coag Time 1.70 U/mL 333 SEC (193-297) H Activated Coag Time 2.84 U/mL 491 SEC (260-420) H Heparin Level (COAG) 0 MG/KG Calculated Heparin Req (Hep Assay) 17028 UNITS Calculated Protamine Req (Hep Assay 0 MG Activated Clotting Time 126 SEC (101-148) Fibrinogen 271 MG/DL (177-424) Coagulation Clinical Comments Prothrombin Time 11.8 SECONDS (9.0-12.0) INR International Normalized Ratio 1.2 INR Activated Partial Thromboplast Time 31 SECONDS (22-32) Coagulation Comments Cardiac Rhythm: Sinus Rhythm Problem\Assessment\Plan Additional Plan POD#2 CABGx2, LLAA Stable CXR, needs continued aggressive pulm push adn will add IV Zosyn after discussing with surgeon DC TPW DC chest tubes OK to transfer later to telemetry floor JYOTI HORTA Feb 21, 2025 10:13
[2025-02-21] MEDS: magnesium hydroxide 30ml (MOM) UD suspension PO PRN (11:35)
[2025-02-21] MEDS ORDERED: lactose-reduced food (Ensure High Protein) 237ml bottle PO SCH (13:00)
[2025-02-21] MEDS: piperacillin/tazo 3.375gm/50ml 50 ML IV SCH (16:53)
[2025-02-21] MEDS: lactose-reduced food (Ensure High Protein) 237ml bottle PO SCH (18:00)
[2025-02-22] VITALS (27 sets, daily range): BP systolic 110–150; BP diastolic 67–87; PULSE 61–93; RESP 15–24; TEMP 97.1–98.4; O2SAT 83–96
[2025-02-22 04:26] LABS: MEAN PLATELET VOLUME 7.9 FL (7.4-10.4); RED CELL DISTRIBUTION WIDTH 14.5 % (11.5-14.5)
[2025-02-22 04:38] LABS: CREATININE 0.97 MG/DL (0.60-1.10); PHOSPHORUS 2.1 MG/DL (2.3-4.5); TOTAL CARBON DIOXIDE 25.5 MMOL/L (24-32); eCRCL 78 ML/MIN; eGFR 78 ML/MIN
[2025-02-22 04:52] LABS: BANDS% (MANUAL) 2.0 % (0-10); LYMPHOCYTES % (MANUAL) 5.0 % (21-51); MONOCYTES % (MANUAL) 9.0 % (2-12); NEUTROPHILS % (MANUAL) 84.0 % (42-75)
[2025-02-22 04:53] LABS: PLATELET ESTIMATE NORMAL
--- NOTE | 2025-02-22 05:37 | RADIOLOGY REPORT ---
CHEST RADIOGRAPH Indication: POST OP Technique: Single frontal view of the chest was obtained COMPARISON: DI CHEST,SINGLE VIEW on DOS: 02/21/25, DI CHEST,SINGLE VIEW on DOS: 02/20/25, DI CHEST,SING LE VIEW on DOS: 02/19/25, DI CHEST,SINGLE VIEW on DOS: 02/19/25, DI CHEST,SINGLE VIEW on DOS: 02/19/25 FINDINGS: Lines and Tubes: Median sternotomy. Right central venous catheter in satisfactory position. Lungs: Left lower lobe airspace disease. Pleura: Small left pleural effusion. No pneumothorax. Cardiomediastinal contours: Cardiomegaly Bones: Unremarkable IMPRESSION: No significant interval change.
[2025-02-22 07:40] LABS: ABG PO2 443.1 mmHg (83.0-108.0)
[2025-02-22 07:41] LABS: ABG OXYGEN SATURATION 78.0 % (94.0-98.0); ABG PO2 43.3 mmHg (83.0-108.0)
[2025-02-22 07:41] LABS: ABG PO2 420.2 mmHg (83.0-108.0)
--- NOTE | 2025-02-22 09:44 | PROGRESS NOTE ---
Progress Note CV Providers to CC ~ Antibiotics Ordered?: No Subjective Subjective S/P CABG x 2 POD # 3. Says he had a rough night. Complains of SOB and L sided "lung pain". Says he has not been walked in a couple of days. He is currently NPO for possible bronch today. CT over the weekend showed LLL atelectasis. Also has elevated WBC's to 29,000. Did get a dose of steroids. He is now on Zosyn. Objective Vitals Vital Signs Date Time Temp Pulse Resp B/P (MAP) Pulse Ox O2 Delivery O2 Flow Rate FiO2 02/22/25 08:51 76 Nasal Cannula 4.0 02/22/25 08:39 18 93 32 02/22/25 05:00 150/87 (108) 02/21/25 22:00 97.5 Lab Results: 02/22/25 0400 02/22/25 0400 Objective Lungs - diminished L Heart - RRR, SR with some PAC's Abd/Extr - OK Incisions - CDI Coagulation Studies Laboratory Tests Test 02/19/25 08:38 02/19/25 12:14 02/19/25 13:40 02/20/25 01:39 Patient Sex (Coag) M Patient Height (Coag) 175cm Patient Weight (Coag) 75.0k KG Patient Blood Volume 5580 ML Pump Volume 1500 ML Total Blood Volume 7080 ML Projected Heparin Concentration 1.7 MG/KG Heparin [place] 135 Calculated Heparin Bolus 99433 UNITS Activated Coagulation Time Baseline 165 SEC (101-148) H Activated Coag Time 1.70 U/mL 333 SEC (193-297) H Activated Coag Time 2.84 U/mL 491 SEC (260-420) H Heparin Level (COAG) 0 MG/KG Calculated Heparin Req (Hep Assay) 56804 UNITS Calculated Protamine Req (Hep Assay 0 MG Activated Clotting Time 126 SEC (101-148) Fibrinogen 271 MG/DL (177-424) Coagulation Clinical Comments Prothrombin Time 11.8 SECONDS (9.0-12.0) INR International Normalized Ratio 1.2 INR Activated Partial Thromboplast Time 31 SECONDS (22-32) Coagulation Comments Cardiac Rhythm: Sinus Rhythm, BBB, Sinus Bradycardia Problem\\Assessment\\Plan Additional Plan POD # 3 CT shows LLL consolidation. Some elevation L hemidiaphragm. Will repeat CT, and do sniff test today. WBC's elevated. He is on Zosyn. [facility] requested for repeat bronch. S/P L subclavian stent, on plavix. Sepsis Screening Reassessment Date: Feb 22, 2025 Supervising Co-signing Provider: DILSHAD Dewey Feb 22, 2025 09:44
[2025-02-22] MEDS ORDERED: cefepime 1GM/NS ADD-VANTAGE 100 ML IV SCH (10:00)
--- NOTE | 2025-02-22 11:02 | RADIOLOGY REPORT ---
CLINICAL INFORMATION: Evaluate for phrenic nerve/SNIFF TEST. TECHNIQUE: AP portable chest radiographs were obtained in inspiration and expiration. COMPARISON: DI CHEST,TWO VIEWS on DOS: 02/08/25 FINDINGS: Lungs: There is opacification of the left lung base, likely due to a combination of pleural effusion, atelectasis, and consolidation, similar to the prior exam. Minimal blunting of the right costophreni c angle suggesting trace right pleural effusion. There is expected movement of the right hemidiaphrag m with inspiration and expiration. Left hemidiaphragm is not visualized on either inspiration or exp iration views unable to be evaluated. Cardiac: Unchanged cardiomegaly. Similar-appearing postsurgical changes. Pulmonary vasculature: Prominence of the pulmonary vasculature. Mediastinum/keena: Right internal jugular central venous catheter distal tip appears stable, reaching the mid SVC. Arterial stent in the left subclavian vein appears stable. Bones: No evidence of acute osseous abnormality. Other: No other significant finding. IMPRESSION: 1. Minimal change in the opacities in the left lung base, likely due to combination of pleural effusi on, atelectasis, and consolidation. 2. Expected movement of the right hemidiaphragm when comparing inspiration and expiration views. Left hemidiaphragm is not visualized on either view due to the adjacent opacities, unable to be evaluated for phrenic nerve palsy. 3. Cardiomegaly and prominence of the pulmonary vasculature suggesting pulmonary vascular congestion in the appropriate clinical setting. 4. Additional findings as described above.
[2025-02-22] MEDS: cefepime 1GM in D5W 50mL 50 ML IV ONE (11:41)
[2025-02-22] MEDS: ipratropium 0.5 MG/2.5ML nebule IH SCH (11:51)
[2025-02-22] MEDS: LEVALBUTEROL HCL 1.25 MG/3 ML VIAL.NEB INH SCH (11:51)
--- NOTE | 2025-02-22 13:50 | RADIOLOGY REPORT ---
Procedure: [facility] Study Date and Requested Time: 02/22/2025 12:43 P M History: left lower lobe pneumonia Comparison: CT CT CHEST on DOS: 02/20/25, CT CT CHEST on DOS: 02/07/25 Dose: CTDI: 18.6 mGy DLP: 747.54 mGycm Technique: Multiplanar images obtained through the chest without contrast. Findings: The thyroid gland is unremarkable. Mild cardiomegaly. There is slight interval increase in the retrosternal fluid with foci of air and e picardial fat stranding consistent with recent surgery . There is interval removal of the drainage c atheters. Right IJ approach central venous catheter terminating over the distal SVC. Left proximal harman bclavian artery stent is noted. Patchy right upper lobe ground-glass opacities with Bilateral upper lobe linear atelectasis. Moderate left with small to moderate Right pleural effusions and associated atelectasis. Minimal less than 5% left medial apical pneumothorax. Mild nonspecific bilateral perinephric fat stranding. Otherwise partial view of the upper abdomen is unremarkable. Surgical clips are noted adjacent to the distal esophagus. Midline sternotomy wires are noted with minimal adjacent fat stranding. Impression: Postsurgical changes of cardiac surgery with slight interval increase in the small retrosternal fluid and air. There is interval removal of the drainage catheters. Redemonstration of pneumomediastinum w hich is most likely associated with the surgery. Interval development of minimal left medial lung apex pneumothorax, less than 5% Patchy ground-glass opacities of the right upper lobe which may represent infectious / inflammatory p rocess. Moderate left and small to moderate right-sided pleural effusions and associated atelectasis with evelio ateral upper lobe atelectasis. Critical Result: Minimal left apical pneumothorax Findings discussed with patient's nurse Yajaira at 02/22/2025 01:46 PM, and acknowledged receipt and unde rstanding of the findings. ..
--- NOTE | 2025-02-22 16:53 | CONSULTATION REPORT ---
Consult Providers to CC ~ History of Present Illness Reason for Admit\Complaint: CABG History of Present Illness 64-year-old male who underwent CABG with Dr. Purdy on the 19 February 2025 that has been complicated by left lower lobe atelectasis. The patient underwent bronchoscopy that did not alleviate the left lung opacity. Review of the CAT scans of the chest today suggest compressive atelectasis as opposed to resorption atelectasis that could be due to mucus plugging. He is currently on 4 L of oxygen via nasal cannula with a pulse oximeter reading of 93%. He is complaining of subjective dyspnea with exertion but not at rest. He does not seem to be in any respiratory distress. Allergies: Coded Allergies: No Known Allergies (Unverified , 02/03/25) Home Medications Home Medications Active Reported Metoprolol Succinate 25 Mg Tab.sr.24h 1 Tab PO DAILY Lisinopril 20 Mg Tablet 2 Tab PO DAILY Clopidogrel (Clopidogrel Bisulfate) 75 Mg Tablet 1 Tab PO DAILY Do not stop medication unless instructed by prescriber. Atorvastatin Calcium 20 Mg Tablet 2 Tab PO DAILY Aspirin Chewable (Aspirin) 81 Mg Tab.chew 81 Mg PO DAILY Amlodipine Besylate 5 Mg Tablet 1 Tablet PO BID Past Medical History Past Medical History Coronary artery disease Hypotension new line nicotine addiction Subclavian artery stenosis Past Surgical History Surgical History Comment Recent CABG x2 with left atrial appendage ligation Family History Family History: FHx: bladder cancer FHx: heart disease FHx: stroke Past Social History Social History Comment Quit smoking 15 days ago. He has smoked about one pack of cigarettes a day for 25 years. Exam Vitals: Vital Signs Date Time Temp Pulse Resp B/P (MAP) Pulse Ox O2 Delivery O2 Flow Rate FiO2 02/22/25 12:20 78 18 Nasal Cannula 4.0 02/22/25 11:58 96 36 02/22/25 05:00 150/87 (108) 02/21/25 22:00 97.5 General: No apparent distress HEENT: N/C/AT, PERRLA, EOMI Neck: No Lap Chest: Symmetric expansion, reduced BS left lower lung zone,reduced left vocal fremitus Cardiovascular: Normal S1/S2 Abdomen: Soft non tender Extremities: No c/c/e Central Nervous System: No deficits Diagnostic Data Last Recorded Lab Results: 02/22/25 0400 02/22/25 0400 Diagnostic Data: Laboratory Tests Test 02/19/25 08:38 02/19/25 12:14 02/19/25 13:40 02/20/25 01:39 Patient Sex (Coag) M Patient Height (Coag) 175cm Patient Weight (Coag) 75.0k KG Patient Blood Volume 5580 ML Pump Volume 1500 ML Total Blood Volume 7080 ML Projected Heparin Concentration 1.7 MG/KG Heparin [place] 135 Calculated Heparin Bolus 29183 UNITS Activated Coagulation Time Baseline 165 SEC (101-148) H Activated Coag Time 1.70 U/mL 333 SEC (193-297) H Activated Coag Time 2.84 U/mL 491 SEC (260-420) H Heparin Level (COAG) 0 MG/KG Calculated Heparin Req (Hep Assay) 09370 UNITS Calculated Protamine Req (Hep Assay 0 MG Activated Clotting Time 126 SEC (101-148) Fibrinogen 271 MG/DL (177-424) Coagulation Clinical Comments Prothrombin Time 11.8 SECONDS (9.0-12.0) INR International Normalized Ratio 1.2 INR Activated Partial Thromboplast Time 31 SECONDS (22-32) Coagulation Comments Additional Plan Left lower lobe atelectasis resorption vs compressive Left pleural effusion Plan: Bedside Chest US to determine the possibilty of pleural tap and or left pigtail chest tube drainage on 02/22/2025 LAKEISHA GAITAN MD Feb 22, 2025 16:53
[2025-02-22] MEDS: cefepime 1GM in D5W 50mL 50 ML IV SCH (17:28)
[2025-02-23] VITALS (23 sets, daily range): BP systolic 97–140; BP diastolic 60–100; PULSE 67–122; RESP 13–22; TEMP 97.4–98.2; O2SAT 91–97
--- NOTE | 2025-02-23 03:46 | RADIOLOGY REPORT ---
C-ARM FLUOROSCOPY: PROCEDURE: SNIF test F FINDINGS: Spot intraoperative C arm radiographs demonstrating snif test . IMPRESSION: Please refer to surgical report for detailed findings.
[2025-02-23 06:33] LABS: MEAN PLATELET VOLUME 7.5 FL (7.4-10.4); RED CELL DISTRIBUTION WIDTH 14.7 % (11.5-14.5)
[2025-02-23 06:49] LABS: CREATININE 0.93 MG/DL (0.60-1.10); PHOSPHORUS 3.0 MG/DL (2.3-4.5); TOTAL CARBON DIOXIDE 26.7 MMOL/L (24-32); eCRCL 81 ML/MIN; eGFR 82 ML/MIN
[2025-02-23] MEDS: magnesium citrate 296ml oral solution PO ONE (08:05)
[2025-02-23] MEDS: potassium Cl 20 mEq SR tablet PO PRN (08:11)
--- NOTE | 2025-02-23 08:23 | PROGRESS NOTE ---
Progress Note CV Providers to CC ~ Antibiotics Ordered?: Yes Subjective Subjective S/P CABG x 2 POD # 4. Was awake all night. Went back into A. fib, with controlled rate this morning. Sniff test reportedly normal. CT demonstrates atelectasis and effusion L. No BM yet. Walked 100 feet this morning. Getting some Mg citrate now . Objective Vitals Vital Signs Date Time Temp Pulse Resp B/P (MAP) Pulse Ox O2 Delivery O2 Flow Rate FiO2 02/23/25 06:00 121 02/23/25 04:25 16 02/23/25 02:00 97.4 107/75 (86) 91 Nasal Cannula 2.0 02/22/25 11:58 36 Lab Results: 02/23/25 0608 02/23/25 0608 Objective Lungs - diminished L base Heart - Irreg, irreg. A. fib Abd/Extr - OK Incisions - CDI dsgs. Coagulation Studies Laboratory Tests Test 02/19/25 08:38 02/19/25 12:14 02/19/25 13:40 02/20/25 01:39 Patient Sex (Coag) M Patient Height (Coag) 175cm Patient Weight (Coag) 75.0k KG Patient Blood Volume 5580 ML Pump Volume 1500 ML Total Blood Volume 7080 ML Projected Heparin Concentration 1.7 MG/KG Heparin [place] 135 Calculated Heparin Bolus 61176 UNITS Activated Coagulation Time Baseline 165 SEC (101-148) H Activated Coag Time 1.70 U/mL 333 SEC (193-297) H Activated Coag Time 2.84 U/mL 491 SEC (260-420) H Heparin Level (COAG) 0 MG/KG Calculated Heparin Req (Hep Assay) 48884 UNITS Calculated Protamine Req (Hep Assay 0 MG Activated Clotting Time 126 SEC (101-148) Fibrinogen 271 MG/DL (177-424) Coagulation Clinical Comments Prothrombin Time 11.8 SECONDS (9.0-12.0) INR International Normalized Ratio 1.2 INR Activated Partial Thromboplast Time 31 SECONDS (22-32) Coagulation Comments Cardiac Rhythm: BBB, Atrial Fibrillation Problem\Assessment\Plan Additional Plan POD # [address] Landis planning U/S, possible thora L chest today. Rx for BM. Recurent A. fib. Will re-bolus Amiod. WBC's downtrending. He is on abx. Sepsis Screening Reassessment Date: Feb 23, 2025 Supervising MD Co-signing Provider: DILSHAD Lynch Feb 23, 2025 08:23
[2025-02-23] MEDS: LEVALBUTEROL HCL 1.25 MG/3 ML VIAL.NEB INH PRN (08:35)
[2025-02-23] MEDS: amiodarone 150mg/dext, iso-os 100 ML IV ONE (09:40)
--- NOTE | 2025-02-23 12:29 | RADIOLOGY REPORT ---
DI CHEST,TWO VIEWS CLINICAL HISTORY: s/p thoracentesis COMPARISON: DI CHEST,TWO VIEWS on DOS: 02/22/25, DI CHEST,TWO VIEWS on DOS: 02/08/25 TECHNIQUE: Frontal and lateral view of the chest was obtained FINDINGS: Lines and Tubes: Right central venous catheter with tip in the SVC. Lungs: Left basilar opacity. Pleura: Small left pleural effusion. Cardiomediastinal contours: Cardiomegaly Bones: No acute osseous abnormality. IMPRESSION: Small left pleural effusion. Cardiomegaly with CHF
[2025-02-23] MEDS: amiodarone/D5 360MG/200ML BAG 200 ML IV SCH (13:06)
--- NOTE | 2025-02-23 17:34 | RADIOLOGY REPORT ---
NON-CONTRAST CHEST COMPUTERIZED TOMOGRAPHY REASON FOR STUDY: S/P THORACENTESIS. Left lower lobe pneumonia. Bilateral pleural effusions. COMPARISON: DI CHEST FLUOROSCOPY on DOS: 02/22/25, CT CT CHEST on DOS: 02/22/25, CT CT CHEST on DOS: , CT CT CHEST on DOS: 02/07/25 TECHNIQUE: The exam was performed on a multidetector spiral scanner. Spiral scans were acquired throu gh the chest. 2-D coronal and sagittal reformatted images were provided. Radiation optimization: All CT scans at this facility use at least one of these dose optimization techniques: Automated exposure control mA and/or kV adjustment per patient size (includes targeted exams where dose is matched to cl inical indication) or iterative reconstruction. RADIATION DOSE: CTDI: 18 mGy DLP: 769 mGy-cm FINDINGS: There is scattered patchy ground-glass airspace disease throughout the right lung, slight ly increased in prominence and number of foci of ground-glass compared with the prior study. There is mildly improved aeration of the left lower lobe and dependent lingula compared with the prior study. There is trace patchy airspace disease in the left upper lobe at the periphery. There is moderate co nsolidation of the dependent left lower lobe with air bronchograms, decreased compared with the prior study. There is small right pleural effusion, unchanged. There is small left pleural effusion, signi ficantly decreased compared with the prior study. The heart is not enlarged. There is trace residual mediastinal air, decreased compared with the prior study and likely related to surgery. Heart is bord jaz enlarged. There are coronary artery calcifications. There is a right internal jugular vein cat heter with the tip terminating in the upper SVC. There is a left subclavian artery stent. There are c lips about the esophagus at the diaphragmatic hiatus. Partial visualization of the upper abdomen demo nstrates numerous calcifications in the pancreas consistent with chronic pancreatitis. No pathologic lymphadenopathy is identified by size criteria. No focal bony lesion is identified. IMPRESSION: Increased scattered patchy ground-glass airspace disease in both lungs, [id number]-left. Interval decrease in size of left pleural effusion. Bilateral pleural effusions are now small. Improved aeration of dependent lingula and left lower lobe. Moderate residual dependent consolidation of the left lower lobe, possibly compressive atelectasis although superimposed pneumonia is not rule d out. Decreasing pneumomediastinum, likely related to recent surgery.
--- NOTE | 2025-02-23 18:11 | PROCEDURE NOTE- [place]idance ---
Procedure Note Providers to CC ~ Indications Left pleural effusion with pneumonia [employer] Dr. Gaitan and Dr. Niko Robles Type of Anesthesia 1% lidocaine local anesthesia Informed Consent Yes Description INDICATION: Left moderate pleural effusion PROCEDURE CUSTOMER SERVICE RECEPTIONIST: Dr. Gaitan & Dr.Venkatesh Robles ATTENDING PHYSICIAN: _ Dr. Gaitan In Attendance (Y/N)_ yes CONSENT: During the informed consent discussion regarding the procedure, or treatment, I explained the following to the patient/designee: a. Nature of the procedure or treatment and who will perform the procedure or treatment. b. Necessity for procedure and the possible benefits. c. Risks and complications (most common and serious). d. Alternative treatments and the risks, benefits and side effects of each (including no treatment). e. Likelihood of the patient achieving his/her goals without this procedure and surgery treatment. f. Problems that might occur during the recuperation. g. Conflicts of interest, if any PROCEDURE SUMMARY: A time out was performed and the chest x-ray was reviewed, the appropriate side was confirmed and marked. My hands were washed immediately prior to the procedure. I wore a surgical cap, mask with protective eyewear, sterile gown and sterile gloves throughout the procedure. The patient was prepped and draped in a sterile manner using chlorhexidine scrub after the appropriate level was percussed and confirmed by ultrasound. 1% lidocaine was used to anesthesize the skin, subcutaneous tissue, superior aspect of the rib periosteum and parietal pleura. A finder needle was then introduced over the superior aspect of the rib to locate the pleural fluid; bright red colored fluid was aspirated at a depth of approximately 3-5 cm.. A 10-blade scalpel was used to aditi the skin at the insertion site. The [id number]-m-[id number] needle was then introduced through the skin incision into the pleural space using negative aspiration pressure and the red colormetric indicator to confirm appropriate positioning of the needle. The thoracentesis catheter was then threaded without difficulty 750 ml of bright red colored fluid was removed without difficulty. The catheter was then removed. No immediate complications were noted during the procedure. A post- procedure chest x-ray and CT which showed improvement and without any complications. The fluid will be sent for studies. Estimated blood loss is 3-5 mL. Estimated Blood Loss 3-5 mL Complication None X-Ray Findings CT chest after status post thoracentesis IMPRESSION: Increased scattered patchy ground-glass airspace disease in both lungs, [id number]-xcko-left. Interval decrease in size of left pleural effusion. Bilateral pleural effusions are now small. Improved aeration of dependent lingula and left lower lobe. Moderate residual dependent consolidation of the left lower lobe, possibly compressive atelectasis although superimposed pneumonia is not ruled out. Decreasing pneumomediastinum, likely related to recent surgery. Chest x-ray PA view lateral FINDINGS: Lines and Tubes: Right central venous catheter with tip in the SVC. Lungs: Left basilar opacity. Pleura: Small left pleural effusion. Cardiomediastinal contours: Cardiomegaly Bones: No acute osseous abnormality. IMPRESSION: Small left pleural effusion. Cardiomegaly with CHF Date of Service: Feb 23, 2025 Billing Provider: LAKEISHA GAITAN MD, VENKATESH, RES Feb 23, 2025 18:11
[2025-02-24] VITALS (17 sets, daily range): BP systolic 112–144; BP diastolic 68–85; PULSE 78–105; RESP 14–23; TEMP 97–98.6; O2SAT 94–98
--- NOTE | 2025-02-24 08:43 | PROGRESS NOTE ---
Progress Note CV Providers to CC ~ Antibiotics Ordered?: No Subjective Subjective S/P CABG x 2 POD # 5. Back in SR and feels much improved. Breathing is better. He is up to the chair for breakfast. Objective Vitals Vital Signs Date Time Temp Pulse Resp B/P (MAP) Pulse Ox O2 Delivery O2 Flow Rate FiO2 02/24/25 08:03 86 18 97 Room Air* 0 21 02/24/25 05:00 140/84 (102) 02/24/25 02:00 98.6 Lab Results: 02/23/25 0608 02/24/25 0547 Objective Lungs - mildly decreased L base Heart - RRR, SR Abd/Extr - OK Incisions - CDI Coagulation Studies Laboratory Tests Test 02/19/25 08:38 02/19/25 12:14 02/19/25 13:40 02/20/25 01:39 Patient Sex (Coag) M Patient Height (Coag) 175cm Patient Weight (Coag) 75.0k KG Patient Blood Volume 5580 ML Pump Volume 1500 ML Total Blood Volume 7080 ML Projected Heparin Concentration 1.7 MG/KG Heparin [place] 135 Calculated Heparin Bolus 67787 UNITS Activated Coagulation Time Baseline 165 SEC (101-148) H Activated Coag Time 1.70 U/mL 333 SEC (193-297) H Activated Coag Time 2.84 U/mL 491 SEC (260-420) H Heparin Level (COAG) 0 MG/KG Calculated Heparin Req (Hep Assay) 43805 UNITS Calculated Protamine Req (Hep Assay 0 MG Activated Clotting Time 126 SEC (101-148) Fibrinogen 271 MG/DL (177-424) Coagulation Clinical Comments Prothrombin Time 11.8 SECONDS (9.0-12.0) INR International Normalized Ratio 1.2 INR Activated Partial Thromboplast Time 31 SECONDS (22-32) Coagulation Comments Cardiac Rhythm: Atrial Fibrillation Problem\Assessment\Plan Additional Plan POD # 5 Back in SR Will change Amiod back to PO Increase B gemma. + BM's Home soon if rhythm remains stable. Sepsis Screening Reassessment Date: Feb 24, 2025 Supervising Co-signing Provider: DILSHAD Lynch Feb 24, 2025 08:43
[2025-02-24] MEDS: lactose-reduced food (Ensure Enlive) - 237ml bottle PO SCH (08:50)
[2025-02-25] VITALS (7 sets, daily range): BP systolic 106–154; BP diastolic 45–83; PULSE 59–80; RESP 14–18; TEMP 97.2–97.8; O2SAT 95–97
[2025-02-25 07:28] LABS: PHOSPHORUS 3.2 MG/DL (2.3-4.5)
--- NOTE | 2025-02-25 08:04 | PROGRESS NOTE ---
Progress Note CV Providers to CC ~ Antibiotics Ordered?: No Subjective Subjective S/P CABG x 2 POD # 6. Alert, up to chair. He is looking forward to going home today. No complaints. He is on room air. No further A. fib. Objective Vitals Vital Signs Date Time Temp Pulse Resp B/P (MAP) Pulse Ox O2 Delivery O2 Flow Rate FiO2 02/25/25 06:00 97.2 77 17 116/72 (87) 95 Room Air 02/25/25 00:23 0 21 Lab Results: 02/23/25 0608 02/25/25 0620 Objective Lungs - mildly decreased L base Heart - RRR, SR Abd/Extr - OK Incisions - CDI Coagulation Studies Laboratory Tests Test 02/19/25 08:38 02/19/25 12:14 02/19/25 13:40 02/20/25 01:39 Patient Sex (Coag) M Patient Height (Coag) 175cm Patient Weight (Coag) 75.0k KG Patient Blood Volume 5580 ML Pump Volume 1500 ML Total Blood Volume 7080 ML Projected Heparin Concentration 1.7 MG/KG Heparin [place] 135 Calculated Heparin Bolus 47418 UNITS Activated Coagulation Time Baseline 165 SEC (101-148) H Activated Coag Time 1.70 U/mL 333 SEC (193-297) H Activated Coag Time 2.84 U/mL 491 SEC (260-420) H Heparin Level (COAG) 0 MG/KG Calculated Heparin Req (Hep Assay) 61095 UNITS Calculated Protamine Req (Hep Assay 0 MG Activated Clotting Time 126 SEC (101-148) Fibrinogen 271 MG/DL (177-424) Coagulation Clinical Comments Prothrombin Time 11.8 SECONDS (9.0-12.0) INR International Normalized Ratio 1.2 INR Activated Partial Thromboplast Time 31 SECONDS (22-32) Coagulation Comments Cardiac Rhythm: Sinus Rhythm, Sinus Tachycardia Problem\Assessment\Plan Additional Plan POD # 6 SR CV stable DC home F/U 1-2 weeks. Sepsis Screening Reassessment Date: Feb 25, 2025 Supervising Co-signing Provider: DILSHAD Dewey Feb 25, 2025 08:04
[2025-02-25] MEDS ORDERED: HYDR-3972 PO (08:08)
[2025-02-25] MEDS ORDERED: LEVO-65 PO (08:08)
[2025-02-25] MEDS ORDERED: AMIO200T76 PO ×2 (08:12→08:25)
[2025-02-25] MEDS ORDERED: AMOX-419 PO (08:13)
[2025-02-25 09:26] LABS: MEAN PLATELET VOLUME 7.2 FL (7.4-10.4); RED CELL DISTRIBUTION WIDTH 14.8 % (11.5-14.5)
[2025-02-25 10:18] LABS: BANDS% (MANUAL) 2.0 % (0-10); EOSINOPHILS % (MANUAL) 6.0 % (0-6); LYMPHOCYTES % (MANUAL) 12.0 % (21-51); METAMYLEOCYTES% (MANUAL) 17.0 % (0-0); MONOCYTES % (MANUAL) 6.0 % (2-12); MYELOCYTES % (MANUAL) 1.0 % (0-0); NEUTROPHILS % (MANUAL) 56.0 % (42-75); PLATELET ESTIMATE INCREASED
--- NOTE | 2025-02-25 18:52 | DISCHARGE SUMMARY ---
DATE OF DISCHARGE: 02/25/2025 DICTATING PHYSICIAN: Ifeanyi Hernandez SHORT SUMMARY ADMITTING PHYSICIAN: Santiago Purdy MD AIR GUN OPERATOR: Rupert Escalante MD, also treated by Dr. Harley Kang for left subclavian stent. PREOPERATIVE DIAGNOSES: Severe coronary artery disease, history of hypertension, history of tobacco use, history of reduced ejection fraction and wrl-MT-[id number] elevation myocardial infarction. DISCHARGE DIAGNOSES: Severe coronary artery disease, history of hypertension, history of tobacco use, history of reduced ejection fraction and mmr-VH-vviblsl elevation myocardial infarction, status post coronary artery bypass grafting x 2, postoperative atrial fibrillation, resolved back to sinus rhythm. COMPLICATIONS: Postoperatively none. CONDITION ON DISCHARGE: Stable. PROGNOSIS: Good. SUMMARY: This is a pleasant 64-year-old gentleman who was admitted with an NSTEMI. He is a smoker and has a history of hypertension. He was referred to Dr. Escalante, and one year ago, had a stress test that was normal, began to experience mild exertional fatigue and was admitted with the last admission with an NSTEMI. He was found to have severe coronary artery disease; however, was on Plavix and was ultimately discharged home, came back to the clinic and saw Dr. Purdy and was readmitted to undergo coronary artery bypass grafting. He was taken to the operating room on 02/19/2025, name of the operation is coronary artery bypass graft surgery x 2 with a left internal mammary artery to the LAD, saphenous vein graft to a diagonal, left atrial appendage ligation and left endoscopic vein harvesting and transesophageal echocardiography. Following the operation, the patient was transferred to the CICU in stable condition. By the following morning, he was awake and alert. He had significant left pleural effusion. Initially, he was bronched. Aggressive pulmonary toilet was initiated. Arterial line and [place] were discontinued. Physical therapy was initiated. Chest drains were removed on postop day #2 after drainage subsided; however, the left lower lobe still remained down. He was seen in consultation by Dr. Landis who felt he would benefit from thoracentesis. This was carried out and 750 mL of dark blood was removed. The patient felt significantly improved following this; however, he did experience atrial fibrillation, was placed on an amiodarone drip, converted back to sinus rhythm; however, re-experienced atrial fibrillation and had to be rebolused and placed on the drip for an additional 24 hours. In addition, metoprolol was up titrated. He converted back to sinus rhythm and has remained in stable sinus rhythm for the remainder of his stay. He is now ambulating quite nicely and has no further complaints. Of significance, his white count was elevated preoperatively at 16, felt to be related to his poor dentition and peaked at 29,000 and then down-trended. Prophylactic antibiotics were initiated including Zosyn and cefepime and we will continue him on oral antibiotics at home. CBC will be obtained this morning prior to discharge to confirm the continued downtrend of his white count. DISCHARGE PROGRAM: As follows: Followup appointment with the surgeon's office in 1 week, with Dr. Escalante' office in 4 weeks and with his primary physician in 6 weeks. ACTIVITY: As per cardiac rehab instructions. He will be instructed to take short showers, to observe sternal precautions, no heavy lifting, no driving. DIET: He will be on a regular diet, transitioning to a heart-healthy diet as tolerated. MEDICATIONS: Include amiodarone 200 mg p.o. b.i.d., Augmentin 500/125 mg p.o. q.12 h., [place] 10/325 one p.o. q.6 h. p.r.n. pain, aspirin 81 mg p.o. daily, Lipitor 40 mg p.o. daily, Plavix 75 mg p.o. daily and metoprolol succinate 25 mg p.o. daily. For now, his amlodipine and lisinopril are being held. Ifeanyi Hernandez TID: [id number] RECEIPT: [id number] Priyanka/ALEX/AMTaurus cc: Santiago Purdy MD, Rupert Escalante MD(User)
== END 2025-02-25 11:19 | disposition home or self-care (01) | DRG 166 ==
LOC: PAS IN 05:33 → CICU 2S 13:30 → PCU 3S 02-21 12:34
PROVIDERS: ADMIT Thoracic Surgery (Cardiothoracic Vascular Surgery); ATTEND Thoracic Surgery (Cardiothoracic Vascular Surgery)
PROC: 0B9L8ZX Drainage of Left Lung, Via Natural or Artificial Opening Endoscopic, Diagnostic (ICD-10-PCS; 2025-02-19)
PROC: 021109W Bypass Coronary Artery, Two Arteries from Aorta with Autologous Venous Tissue, Open Approach (ICD-10-PCS; 2025-02-19)
PROC: 06BQ4ZZ Excision of Left Saphenous Vein, Percutaneous Endoscopic Approach (ICD-10-PCS; 2025-02-19)
PROC: 03HY32Z Insertion of Monitoring Device into Upper Artery, Percutaneous Approach (ICD-10-PCS; 2025-02-19)
PROC: B24BZZ4 Ultrasonography of Heart with Aorta, Transesophageal (ICD-10-PCS; 2025-02-19)
PROC: 5A1221Z Performance of Cardiac Output, Continuous (ICD-10-PCS; 2025-02-19)
PROC: 02L70CK Occlusion of Left Atrial Appendage with Extraluminal Device, Open Approach (ICD-10-PCS; 2025-02-19)
PROC: 30233N1 Transfusion of Nonautologous Red Blood Cells into Peripheral Vein, Percutaneous Approach (ICD-10-PCS; 2025-02-19)
PROC: 02100Z9 Bypass Coronary Artery, One Artery from Left Internal Mammary, Open Approach (ICD-10-PCS; principal; 2025-02-19 07:51)
PROC: 0W9B3ZZ Drainage of Left Pleural Cavity, Percutaneous Approach (ICD-10-PCS; 2025-02-23)
DX: I25.10 Atherosclerotic heart disease of native coronary artery without angina pectoris (principal); J90 Pleural effusion, not elsewhere classified; I10 Essential (primary) hypertension; F17.210 Nicotine dependence, cigarettes, uncomplicated; J98.11 Atelectasis; I48.91 Unspecified atrial fibrillation; Z82.3 Family history of stroke
CPT/HCPCS: 31645; 32555; 36415; 36430; 36600; 71045; 71046; 71048; 71250; 80048; 80053; 81001; 82330; 82435; 82803; 82947; 82948; 83735; 84100; 84132; 84295; 85007; 85018; 85025; 85347; 85384; 85610; 85730; 86885; 86900; 86901; 86920; 87081; 93005; 93312; 93325; 93931; 94002; 94640; 94760; 97116; 97161; 97530; A4615; A4618; A6212; A6253; A6258; A6402; A6449; A7000; A7015; A7048; C1729; C1751; G0378; J0131; J0282; J0665; J0690; J0692; J1644; J1815; J2150; J2250; J2270; J2371; J2405; J2440; J2543; J2704; J2720; J2919; J3373; J3480; J3490; J7030; J7040; J7050; J7060; J7120; J7614; P9016; P9045; P9047